=== PATIENT | male | born 1930 | race Caucasian/White ===

== ENCOUNTER 2016-07-28 08:35 | Inpatient (IN) | payer OTHER, BC ==
--- NOTE | 2016-07-28 08:44 | PDOC ---
*Physical Exam - Physical Exam Comments: 07/28/16 08:44 Pt seen by the Advanced Practice Provider under my direct supervision Pt interviewed and examined Ancillary studies reviewed I agree with plan as outlined by the Advanced Practice Provider ED Treatment Course - LABORATORY CBC & Chemistry Diagram: 07/30/16 06:20 07/30/16 06:20 *DC/Admit/Observation/Transfer Diagnosis at time of Disposition: Cellulitis, Weakness, Steroid dependence
[2016-07-28 08:56] VITALS: BMI 28.2
[2016-07-28 09:09] LABS: MCH 30.4 pg (25.7-33.7); MCHC 32.9 g/dl (32.0-35.9); MEAN CELL VOLUME 92.4 fl (80-96); PLATELET COUNT 282 K/MM3 (134-434); RDW 15.3 % (11.9-15.9); WHITE BLOOD COUNT 21.1 K/mm3 (4.0-10.0)
--- NOTE | 2016-07-28 09:24 | PDOC ---
History of Present Illness - General Chief Complaint: Weakness Stated Complaint: SEPSIS Time Seen by Provider: 07/28/16 08:44 History Source: Patient, Other (daughter ( physician)) Exam Limitations: No Limitations - History of Present Illness Initial Comments: 07/28/16 09:14 85 y/o male sent over for evaluation of generalized weakness, generalized redness and swelling to rash involving his extremities, torso, and neck. Patient was diagnosed with approximately 6 months ago and has been on steroids and antibiotics. Patient now with draining vesicles to extremities and frequently visits the skilled nursing where his is currently for rehabilitation. patient denies fever, chills, chest pain, shortness of breath, nausea, or decreased urine output. 07/28/16 09:44 Past History - Past Medical History Allergies/Adverse Reactions: Allergies Allergy/AdvReac Type Severity Reaction Status Date / Time alprazolam [From Xanax] Allergy Verified 07/28/16 08:56 codeine Allergy Verified 07/28/16 08:56 Cancer: Yes (prostate) Cardiac Disorders: Yes (afib) HTN: Yes Hypercholesterolemia: Yes Other medical history: pemphigus - Surgical History Appendectomy: Yes GI Surgery: Yes (inguinal hernia repair) - Psycho/Social/Smoking Cessation Hx Anxiety: No Suicidal Ideation: No Smoking History: Never smoked Have you smoked in the past 12 months: No Information on smoking cessation initiated: No Hx Alcohol Use: No Drug/Substance Use Hx: No Substance Use Type: None Patient Lives Alone: No Lives with/in: spouse/SO Review of Systems - Review of Systems Able to Perform ROS?: Yes Constitutional: Yes: Weakness HEENTM: No: Symptoms Reported Respiratory: No: Symptoms reported Cardiac (ROS): No: Symptoms Reported ABD/GI: No: Symptoms Reported : No: Symptoms Reported Musculoskeletal: No: Symptoms Reported Integumentary: Yes: Erythema, Rash, Other (draining veiscles) Neurological: Yes: Weakness *Physical Exam - Vital Signs Last Vital Signs Temp Pulse Resp BP Pulse Ox 96.1 F L 66 20 135/72 100 07/28/16 08:49 07/28/16 08:49 07/28/16 08:49 07/28/16 08:49 07/28/16 08:49 - Physical Exam General Appearance: Yes: Nourished, Appropriately Dressed. No: Apparent Distress HEENT: negative: Pale Conjunctivae Respiratory/Chest: positive: Lungs Clear, Normal Breath Sounds. negative: Respiratory Distress, Accessory Muscle Use Cardiovascular: positive: Regular Rhythm, Regular Rate. negative: Murmur Gastrointestinal/Abdominal: positive: Soft Extremity: positive: Swelling (to bilateral arms with 1-2 cm vesicles scattered to body. Noted draining vesicle to dorsal aspect of right 1st toe. ), Erythema Integumentary: positive: Erythema (scateered to torso, legs, and arms), Swelling Neurologic: positive: Motor Strength 5/5 (ambulatory) Heart Score/ECG Review - ECG Intrepretation Rhythm: Regular Rhythm (nsr 64. No acute findings noted.) ED Treatment Course - LABORATORY CBC & Chemistry Diagram: 07/28/16 09:00 07/28/16 09:00 - RADIOLOGY Radiology Studies Ordered: Category Date Time Status CHEST X-RAY PORTABLE* [RAD] Stat Radiology 07/28/16 08:51 Taken Medical Decision Making - Medical Decision Making 07/28/16 09:50 Pt with concern foe sepsis. Pt recently diagnosed with pemphimgus and currently on bactrim tiw and prednisone daily. Although pt is afebrile, his complaints is generalized weakness and redness/swelling to body. Septic workup initiated and pt id to be admitted to Dr. Mckeon. Wound cx obtained from rt 1st toe. *DC/Admit/Observation/Transfer Diagnosis at time of Disposition: Weakness, Steroid dependence Cellulitis Qualifiers: Site of cellulitis: extremity Site of cellulitis of extremity: upper extremity Laterality: unspecified laterality Qualified Code(s): L03.119 - Cellulitis of unspecified part of limb - Discharge Dispostion Admit: Yes
[2016-07-28] MEDS ORDERED: methylPREDNISolone NA SUCC 125 MG/2 ML VIAL IVPB ONE (09:25)
[2016-07-28] MEDS ORDERED: VANCOMYCIN 1 GRAM (PRE-DOCKED) 1,000 MG/250 ML BAG IVPB ONE (09:31)
[2016-07-28] MEDS ORDERED: methylPREDNISolone NA SUCC 125 MG/2 ML VIAL ONE (09:33)
[2016-07-28 09:35] LABS: INR 1.08 (0.82-1.09); PROTHROMBIN TIME (PATIENT) 11.9 SEC (9.98-11.88)
[2016-07-28] MEDS ORDERED: VANCOMYCIN 1 GRAM (PRE-DOCKED) 250 ML IVPB ONE (09:48)
[2016-07-28 09:57] LABS: ALK PHOS 44 U/L (45-117); BILIRUBIN,TOTAL 0.4 mg/dL (0.2-1.0); CALCIUM 7.7 mg/dL (8.5-10.1); CREATININE 1.2 mg/dL (0.7-1.3); SGOT/AST 9 U/L (15-37); SGPT/ALT 20 U/L (12-78)
[2016-07-28 10:24] LABS: ALBUMIN 2.6 g/dl (3.4-5.0); ANION GAP 10 (8-16); CO2 24 mmol/L (21-32); GLUCOSE,RANDOM 183 mg/dL (74-106)
[2016-07-28] MEDS ORDERED: SODIUM CHLORIDE 1,000 ML IV STA (10:24)
[2016-07-28 10:25] LABS: TROPONIN I < 0.02 ng/ml (0.00-0.05)
--- NOTE | 2016-07-28 11:13 | HP ---
Admitting History and Physical - Admission Chief Complaint: weakness/ fatigued / hypotensive History of Present Illness: 85 y/o male with PMH of HTN / Prostate CA/ Bulluos Phemphigoid - currently treated with high dose steroids on and off for over 6 months. He Called daughter this am ( she is an MD) c/o weakness "cant get out of bed" and noted to have slurring of his speech. At time of event daughter reports Bp 100/60, NO neuro deficit, denies fever / chills / called EMS for transfer to ER. [place] [facility] [place] with B.Shielagoid tx with decadron, had follow up with specialist last week and started on 60 mg prednisone daily. Remains on steroids -will need to cover for adrenal suppression. Meds have beed reviewed and remains only on labetolol for HTN Known to have LBBB on EKG History Source: Patient, Family Member Limitations to Obtaining History: No Limitations - Past Medical History Additional Past Medical History: Bullous phemphigoid - Smoking History Smoking history: Never smoked Have you smoked in the past 12 months: No - Alcohol/Substance Use Hx Alcohol Use: No - Social History Usual Living Arrangement: Yes: With Spouse ADL: Independent Home Medications - Allergies Allergies/Adverse Reactions: Allergies Allergy/AdvReac Type Severity Reaction Status Date / Time alprazolam [From Xanax] Allergy Verified 07/28/16 08:56 codeine Allergy Verified 07/28/16 08:56 - Home Medications Home Medications: Ambulatory Orders Cholecalciferol (Vitamin D3) [Vitamin D3] 50,000 unit PO WEEKLY 07/28/16 Halobetasol Prop 0.05% Tp Crm [Ultravate (Nf)] 1 applic TP DAILY 07/28/16 Labetalol HCl [Normodyne -] 100 mg PO BID 07/28/16 Prednisone [Deltasone -] 2 mg PO DAILY 07/28/16 Prednisone [Deltasone -] 60 mg PO DAILY 07/28/16 Review of Systems - Review of Systems Constitutional: reports: Weakness Eyes: reports: No Symptoms HENT: reports: No Symptoms Neck: reports: No Symptoms Cardiovascular: reports: No Symptoms Respiratory: reports: No Symptoms Gastrointestinal: reports: No Symptoms Genitourinary: reports: No Symptoms Breasts: reports: No Symptoms Reported Musculoskeletal: reports: No Symptoms Integumentary: reports: Blister, Change in Color, Lesions, Pruritis, Other ( blister) Neurological: reports: Weakness Physical Examination Vital Signs: Vital Signs Temperature 96.1 F L 07/28/16 08:59 Pulse Rate 66 07/28/16 08:59 Respiratory Rate 20 07/28/16 08:59 Blood Pressure 135/72 07/28/16 08:59 O2 Sat by Pulse Oximetry (%) 100 07/28/16 08:59 Constitutional: Yes: Calm Eyes: Yes: Conjunctiva Clear, EOM Intact HENT: Yes: Atraumatic, Normocephalic Neck: Yes: Supple, Trachea Midline Cardiovascular: Yes: WNL Respiratory: Yes: CTA Bilaterally Gastrointestinal: Yes: Normal Bowel Sounds Renal/: Yes: WNL Breast(s): Yes: WNL Musculoskeletal: Yes: WNL Extremities: Yes: Erythema, Other (multiple lesions / bear skin / bullous lesions) Edema: No Peripheral Pulses: Left Radial: 2+, Right Radial: 2+, Left Doralis Pedis: 2+, Right Dorsalis Pedis: 2+, Left Femoral: 2+, Right Femoral: 2+ Integumentary: Yes: Erythema, Other Neurological: Yes: Alert, Oriented ...Motor Strength: WNL Psychiatric: Yes: WNL Problem List - Problems (1) Sepsis affecting skin Code(s): L02.91 - CUTANEOUS ABSCESS, UNSPECIFIED (2) Bullous disorder Code(s): L13.9 - BULLOUS DISORDER, UNSPECIFIED (3) Adrenal suppression Code(s): E27.49 - OTHER ADRENOCORTICAL INSUFFICIENCY (4) Cellulitis Code(s): L03.90 - CELLULITIS, UNSPECIFIED Qualifiers: Site of cellulitis: extremity Site of cellulitis of extremity: upper extremity Laterality: unspecified laterality Qualified Code(s): L03.119 - Cellulitis of unspecified part of limb (5) Weakness Code(s): R53.1 - WEAKNESS (6) HTN (hypertension) Code(s): I10 - ESSENTIAL (PRIMARY) HYPERTENSION
--- NOTE | 2016-07-28 13:20 | PN ---
Progress Note, Physician Chief Complaint: ID Appears stable Offers no complaints - Current Medication List Current Medications: Active Medications Heparin Sodium (Porcine) (Heparin -) 5,000 unit SQ BID ADILENE - Objective Vital Signs: Vital Signs Temperature 97.9 F 07/28/16 11:59 Pulse Rate 63 07/28/16 11:59 Respiratory Rate 18 07/28/16 11:59 Blood Pressure 164/76 07/28/16 11:59 O2 Sat by Pulse Oximetry (%) 98 07/28/16 12:06 Constitutional: Yes: Well Nourished, No Distress Neck: Yes: WNL, Supple Cardiovascular: Yes: Regular Rate and Rhythm, S1, S2 Respiratory: Yes: WNL, Regular, CTA Bilaterally Gastrointestinal: Yes: WNL, Normal Bowel Sounds, Soft. No: Tenderness Edema: No Integumentary: Yes: Rash Labs: INR, PTT INR 1.08 (0.82-1.09) 07/28/16 09:00 Problem List - Problems (1) Sepsis affecting skin Code(s): L02.91 - CUTANEOUS ABSCESS, UNSPECIFIED (2) Bullous pemphigoid Code(s): L12.0 - BULLOUS PEMPHIGOID Assessment/Plan Laboratory Tests 07/28/16 07/28/16 07/28/16 09:00 09:00 09:00 WBC 21.1 H Hgb 12.2 Plt Count 282 Creat Clearance w eGFR 57.41 Lactic Acid 2.454 H* Total Bilirubin 0.4 AST 9 L ALT 20 Alkaline Phosphatase 44 L Urine Urobilinogen 07/28/16 07/28/16 10:00 11:25 WBC Hgb Plt Count Creat Clearance w eGFR Lactic Acid 2.179 H* Total Bilirubin AST ALT Alkaline Phosphatase Urine Urobilinogen Pending Assessment Bullous Phemphigoid I do not think he has sepsis Only thing going for that is elevated lactic acid Vital signs and O2 status fine. WBC elevation most likely s60mg prednisone Plan In the interest of patient safety will cover with Vancomycin and Zosyn for 24-48hours. If cultures negative will stop constantine Leigh MD
[2016-07-28] MEDS ORDERED: VANCOMYCIN 1,500 MG in DEXTROSE 5%-WATER - 500 ML IVPB ONE (13:30)
[2016-07-28 13:38] LABS: URINE APPEARANCE CLEAR; URINE BILIRUBIN NEGATIVE (NEGATIVE); URINE BLOOD NEGATIVE (NEGATIVE); URINE COLOR YELLOW; URINE GLUCOSE (UA) NEGATIVE (NEGATIVE); URINE KETONE NEGATIVE (NEGATIVE); URINE LEUK ESTERASE NEGATIVE (NEGATIVE); URINE NITRITE NEGATIVE (NEGATIVE); URINE PROTEIN NEGATIVE (NEGATIVE); URINE UROBILINOGEN NEGATIVE E.U./dl (0.2-1.0)
[2016-07-28] MEDS ORDERED: VANCOMYCIN (PRE-DOCKED) 100 ML IVPB ONE (14:00)
--- NOTE | 2016-07-28 14:06 | PN ---
Teaching Attending Note Name of Resident: Cristino Dubon ATTENDING PHYSICIAN STATEMENT I saw and evaluated the patient. I reviewed the resident's note and discussed the case with the resident. I agree with the resident's findings and plan as documented. SUBJECTIVE: Pt seen and examined in the ICU. Briefly, 85yo male with h/o HTN, prostate ca, bullous pemphigoid on chronic steroids who presents with generalized weakness and slurred speech. He has been on prednisone on and off for the past 6 months but has been on daily dose for the past 2-3 weeks. Denies fevers, chills or sweats. He does report an increase in his rash and increased itchiness. Noted to have an elevated lactate and leukocytosis on admission labs. OBJECTIVE: Last Vital Signs Temp Pulse Resp BP Pulse Ox 97.9 F 63 18 164/76 98 07/28/16 11:59 07/28/16 11:59 07/28/16 11:59 07/28/16 11:59 07/28/16 12:06 Intake & Output 07/25/16 07/26/16 07/27/16 07/28/16 23:59 23:59 23:59 23:59 Output Total 400 Balance -400 Weight 175 lb Gen: NAD at rest Heart: RRR Lung: decreased breath sounds at the bases Abd: soft, nontender Ext: no edema Skin: innumerable blisters, some open with erythema CBC, BMP 07/28/16 09:00 07/28/16 09:00 Active Medications Heparin Sodium (Porcine) (Heparin -) 5,000 unit SQ BID [facility] Piperacillin Sod/Tazobactam Sod (Zosyn 4.5gm Ivpb (Pre-Docked)) 100 mls @ 200 mls/hr IVPB Q8H-IV [facility] PRN Reason: Protocol Vancomycin HCl (Vancomycin (Pre-Docked)) 100 mls @ 100 mls/hr IVPB ONCE ONE Stop: 07/28/16 14:59 Trimethoprim/Sulfamethoxazole (Bactrim Ds -) 1 each PO [id number]@1000 [facility] ASSESSMENT AND PLAN: r/o Sepsis Lactic Acidosis r/o Cellulitis Bullous Pemphigoid r/o Adrenal Insufficiency HTN - antibiotic coverage - f/u cultures - IVF - monitor lactate - monitor fever curve, WBC trend - benadryl - short course of stress dose steroids - DVT prophylaxis
--- NOTE | 2016-07-28 14:38 | CONSULT ---
Consultation: REQUESTING PROVIDER: CONSULT REQUEST: We have been asked to medically evaluate this patient for ( specify). 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 came to hospital with generalized weakness. Patient states that this morning when he woke up he felt generalized weakness. His daughter checked his bp whic was 100/ 45. his usual bp is around 130. In hospital he was found to have elevated lactic acid. ID is on case and he got zosyn and vanco. Patient is on iv fluid. For BP he was on jodi inhibitor but his daughter stopped it ( she is physician ) as his legs started getting swollen. Now patient feels better, genralized weakness has decreased. REVIEW OF SYSTEMS: CONSTITUTIONAL: Absent: fever, chills, diaphoresis, generalized weakness,weight change HEENT: Absent: throat pain, throat swelling, difficulty swallowing, mouth swelling, CARDIOVASCULAR: Absent: chest pain, syncope, palpitations, irregular heart rate, lightheadedness , peripheral edema RESPIRATORY: Absent: cough, shortness of breath, GASTROINTESTINAL: Absent: abdominal pain, abdominal distension, nausea, vomiting, diarrher, hematochezia GENITOURINARY: Absent: dysuria, frequency, urgency, MUSCULOSKELETAL: Absent: myalgia, arthralgia, SKIN: multiple blisters all over body, rashes all over, itching ENDOCRINE: Absent: unexplained weight gain, unexplained weight loss, NEUROLOGIC: Absent: headache, focal weakness or paresthesias, dizziness, unsteady gait, seizure, mental status changes, bladder or bowel incontinence PSYCHIATRIC: Absent: anxiety, depression, PHYSICAL EXAMINATION Vital Signs - 24 hr 07/28/16 07/28/16 07/28/16 11:19 11:20 11:59 Temperature 97.2 F L 97.9 F Pulse Rate 65 63 Pulse Rate [ 68 Apical] Respiratory 18 20 18 Rate Blood Pressure 154/77 164/76 Blood Pressure 154/77 [Right Arm] O2 Sat by Pulse 97 100 Oximetry (%) 07/28/16 12:06 Temperature Pulse Rate Pulse Rate [ Apical] Respiratory Rate Blood Pressure Blood Pressure [Right Arm] O2 Sat by Pulse 98 Oximetry (%) GENERAL: Awake, alert, and fully oriented, in no acute distress. HEAD: Normal with no signs of trauma. EYES: Pupils equal, round and reactive to light, extraocular movements intact. EARS, NOSE, THROAT: Ears normal, nares patent, oropharynx clear without exudates. Moist mucous membranes. no ulcer seen in oral cavity NECK: Normal range of motion, . LUNGS no wheezes, and no crackles. No accessory muscle use. HEART: s1s2 normal ABDOMEN: Soft, nontender, not distended, normoactive bowel sounds, no guarding, no rebound, no masses. MUSCULOSKELETAL: Normal range of motion at all joints. UPPER EXTREMITIES: 2+ pulses, warm, well-perfused. No cyanosis. No clubbing. Cap refill <2 seconds. No peripheral edema. LOWER EXTREMITIES: 2+ pulses, warm, well-perfused. No calf tenderness. No peripheral edema. NEUROLOGICAL: Cranial nerves II-XII intact. Normal speech PSYCHIATRIC: Cooperative. Good eye contact. SKIN: Warm, mutilple blisters and rashes all over body Laboratory Results - last 24 hr 07/28/16 07/28/16 10:00 11:25 Lactic Acid 2.179 H* Urine Color Yellow Urine Appearance Clear Urine pH 5.0 Ur Specific [place] 1.019 Urine Protein Negative Urine Glucose (UA) Negative Urine Ketones Negative Urine Blood Negative Urine Nitrite Negative Urine Bilirubin Negative Urine Urobilinogen Negative Ur Leukocyte Esterase Negative Active Medications Generic Name Dose Route Start Last Admin Trade Name Chuyq PRN Reason Stop Dose Admin Diphenhydramine HCl 50 mg 07/28/16 14:30 Benadryl Injection - IVPB 07/28/16 14:31 ONCE ONE Heparin Sodium (Porcine) 5,000 unit 07/28/16 22:00 Heparin - SQ BID ADILENE Hydrocortisone Sodium Succinate 100 mg 07/28/16 14:15 Solu-Cortef - IVPB 07/30/16 02:01 Q8H-IV [facility] Piperacillin Sod/Tazobactam Sod 100 mls @ 200 mls/hr 07/28/16 13:45 Zosyn 4.5gm Ivpb (Pre-Docked) IVPB Q8H-IV [facility] Protocol Vancomycin HCl 100 mls @ 100 mls/hr 07/28/16 14:00 Vancomycin (Pre-Docked) IVPB 07/28/16 14:59 ONCE ONE Sodium Chloride 1,000 mls @ 75 mls/hr 07/28/16 14:30 Normal Saline - IV ASDIR ADILENE Trimethoprim/Sulfamethoxazole 1 each 04/07/17 10:00 Bactrim Ds - PO [id number]@1000 [facility] ASSESSMENT/PLAN: sepsis , r/o cellulitis, wbc can be elevated from steroid ( he was on 60mg of prednisone) on vanco, zosyn follow lactic acid on iv fluid monitor vitals, monitor i/o follow blood and urine culture Bullous pemphigoid on IV hydrocortisone 100mg iv q8h HTN home med labetalol Fluid IV ns 75ml/hr electrolyte : repeat in am nutrition: diabetic diet dvt pro on heparin gi pro protonix dispo : admit in icu Visit type - Emergency Visit Emergency Visit: Yes ED Registration Date: 07/28/16 Care time: The patient presented to the Emergency Department on the above date and was hospitalized for further evaluation of their emergent condition. - New Patient This patient is new to me today: Yes Date on this admission: 07/28/16 - Critical Care Critical Care patient: Yes Total Critical Care Time (in minutes): 45 Critical Care Statement: The care of this patient involved high complexity decision making to prevent further life threatening deterioration of the patient 's condition and/or to evalute & treat vital organ system(s) failure or risk of failure.
[2016-07-28] MEDS: PIPERACILLIN/TAZOB 4.5 GM 100 ML IVPB SCH ×2 (14:44→18:03)
[2016-07-28] MEDS: SODIUM CHLORIDE 1,000 ML IV SCH (14:45)
[2016-07-28] MEDS: HYDROCORTISONE SOD SUCCINATE 100 MG/2 ML VIAL IVPB SCH ×2 (14:45→17:20)
--- NOTE | 2016-07-28 16:08 | EKG ---
Test Reason : Blood Pressure : / mmHG Vent. Rate : 060 BPM Atrial Rate : 060 BPM P-R Int : 202 ms QRS Dur : 112 ms QT Int : 414 ms P-R-T Axes : 062 -28 011 degrees QTc Int : 414 ms NORMAL SINUS RHYTHM POSSIBLE LEFT ATRIAL ENLARGEMENT INCOMPLETE RIGHT BUNDLE BRANCH BLOCK BORDERLINE ECG NO PREVIOUS ECGS AVAILABLE Confirmed by SANJAY SANDOVAL MD ([id number]) on 07/28/2016 4:07:53 PM Referred By: Confirmed By:SANJAY SANDOVAL MD
--- NOTE | 2016-07-28 17:10 | CONS ---
DATE OF CONSULTATION: 07/28/2016 HISTORY OF PRESENT ILLNESS: This is an 85-year-old male with known bullous pemphigoid on high dose steroids who I am asked to see for possible sepsis. The patient has been followed by Dr. Jacobsen his primary medical doctor in [place]. His daughter, an waitstaff who works locally, apparently had called EMS as the patient had been, according to the notes, slurring his speech and felt profoundly weak almost paralyzed. His blood pressure was found to be 100/60 initially. There was no fever, chills or other systemic complaints. The patient has been on 60 mg of prednisone for some time after an effort to taper was unsuccessful and his pemphigoid flared up again recently. He has been on Bactrim 3 times a week for infection prophylaxis. Here, his vital signs were immediately stable. The temperature was 96.1, pulse 66, blood pressure 135/72, respirations 20, O2 saturation 100%. He denies any shortness of breath, chest pain, abdominal pain, urinary complaints. He has extensive rash with blisters consistent with his diagnosis of bullous pemphigoid, but no obvious abscesses that he is aware of. PAST MEDICAL HISTORY: Prostate cancer and hypertension. MEDICATIONS: Normodyne, 60 mg of prednisone. ALLERGIES: XANAX AND CODEINE. SOCIAL HISTORY: Former smoker. Gave this up many years ago. No history of alcohol use. Lives locally. Retired federal worker. No pets. No recent travel. FAMILY HISTORY: Reviewed and noncontributory. REVIEW OF SYSTEMS: Respiratory: No cough or shortness of breath. Cardiac: No chest pain, palpitations, syncope, murmur. Gastrointestinal: No abdominal pain, vomiting, blood per rectum, diarrhea, Genitourinary: No dysuria, hematuria, urinary frequency. PHYSICAL EXAMINATION: General: On physical examination, he was an alert male in no acute distress, oriented x3. Vitals: His temperature was 97.9, pulse 63, blood pressure 1640/76, respirations 18. HEENT: The oropharynx with partial dentures, no thrush, no oral ulcers. Neck: Supple with no adenopathy. Lungs: Clear to percussion and auscultation. Heart: S1, S2, regular rhythm without audible murmur. Abdomen: Soft, nontender without hepatosplenomegaly. Extremities: Without clubbing, cyanosis or edema. Skin: The skin revealed extensive erythematous maculopapular rash with discrete areas of skin ulceration, as well as multiple large blisters present diffusely. There was no evidence of obvious cellulitis, though difficult to tell and no fluctuant or purulent areas. The white count was 21,000, hemoglobin 12.2, platelets of 282 with a differential of 63% neutrophils, 5 lymphocytes, 7 monocytes and 25% eosinophils. The INR 1.08, BUN 42, creatinine 1.2, creatinine clearance 57, lactic acid 2.4. Liver enzymes within normal limit and urinalysis pending. Blood and urine cultures have been sent. Chest x-ray shows no acute infiltrate. ASSESSMENT: Bullous pemphigoid, has been on 60 mg of prednisone, presents now with profound weakness and hypotension, although this had corrected itself by the time he was brought to the hospital. He is taking Bctrim prophylaxis at home. He has no systemic findings suggesting active infection at this time and his chest x-ray shows no evidence of pneumonia. Given his immunocompromised status hypotension and open skin wounds, I will empirically treat him with vancomycin and Zosyn, although index for suspicion for infection admittedly low. Essentially only a mildly elevated lactic acid and a white count elevated probably related to corticosteroids. Of note is a prominent eosinophil count 24 % considering that he is on high dose steroids. Etiology of eosinophilia unclear at this time. The case was discussed with his primary medical doctor, Dr. Jacobsen in [place]. LAW SHEWROOD M.D. [id number] MTDMaria [place]
[2016-07-28] MEDS: HEPARIN NA (PORCINE) 5,000 UNITS/ML 1ML VIAL SQ SCH (21:56)
[2016-07-28] MEDS: LABETALOL HCL 100 MG TABLET (FP) PO SCH (21:56)
[2016-07-29] MEDS: PIPERACILLIN/TAZOB 4.5 GM 100 ML IVPB SCH ×3 (01:23→20:16)
[2016-07-29] MEDS: HYDROCORTISONE SOD SUCCINATE 100 MG/2 ML VIAL IVPB SCH ×3 (01:23→18:03)
[2016-07-29 06:41] LABS: BASOPHIL 0.2 % (0-2.0); MCH 30.6 pg (25.7-33.7); MCHC 33.1 g/dl (32.0-35.9); MEAN CELL VOLUME 92.4 fl (80-96); MEAN PLT VOLUME 8.5 fl (7.5-11.1); NEUTROPHILS 78.9 % (42.8-82.8); PLATELET COUNT 298 K/MM3 (134-434); RDW 15.5 % (11.9-15.9); WHITE BLOOD COUNT 17.9 K/mm3 (4.0-10.0)
[2016-07-29 07:17] LABS: CALCIUM 7.6 mg/dL (8.5-10.1)
[2016-07-29 07:21] LABS: COCKROFT - GAULT 63.46
--- NOTE | 2016-07-29 07:49 | PN ---
Progress Note, Physician Chief Complaint: ID IN good spirits Good night rest Really no complaints Vancom and Zosyn day 1 - Current Medication List Current Medications: Active Medications Heparin Sodium (Porcine) (Heparin -) 5,000 unit SQ BID [facility] Last Admin: 07/28/16 21:56 Dose: 5,000 unit Hydrocortisone Sodium Succinate (Solu-Cortef -) 100 mg IVPB Q8H-IV [facility] Stop: 07/30/16 02:01 Last Admin: 07/29/16 01:23 Dose: 100 mg Piperacillin Sod/Tazobactam Sod (Zosyn 4.5gm Ivpb (Pre-Docked)) 100 mls @ 200 mls/hr IVPB Q8H-IV [facility] PRN Reason: Protocol Last Admin: 07/29/16 01:23 Dose: 200 mls/hr Sodium Chloride (Normal Saline -) 1,000 mls @ 75 mls/hr IV [facility] Last Admin: 07/28/16 14:45 Dose: 75 mls/hr Labetalol HCl (Normodyne -) 100 mg PO BID [facility] Last Admin: 07/28/16 21:56 Dose: 100 mg Pantoprazole Sodium (Protonix -) 40 mg PO DAILY [facility] Trimethoprim/Sulfamethoxazole (Bactrim Ds -) 1 each PO [id number]@1000 [facility] - Objective Vital Signs: Vital Signs Temperature 98.5 F 07/29/16 06:00 Pulse Rate 62 07/29/16 06:00 Respiratory Rate 16 07/29/16 06:00 Blood Pressure 157/88 07/29/16 06:00 O2 Sat by Pulse Oximetry (%) 98 07/28/16 19:23 Constitutional: Yes: Well Nourished, No Distress Neck: Yes: WNL, Supple Cardiovascular: Yes: Regular Rate and Rhythm, S1, S2 Respiratory: Yes: WNL, Regular, CTA Bilaterally Gastrointestinal: Yes: WNL, Normal Bowel Sounds, Soft. No: Tenderness Integumentary: Yes: Rash (Diffuse rash blisters ulcers and erythema diffusely) Labs: CBC, BMP 07/29/16 05:30 07/29/16 05:30 INR, PTT INR 1.08 (0.82-1.09) 07/28/16 09:00 Problem List - Problems (1) Sepsis affecting skin Code(s): L02.91 - CUTANEOUS ABSCESS, UNSPECIFIED (2) Bullous pemphigoid Code(s): L12.0 - BULLOUS PEMPHIGOID Assessment/Plan Laboratory Tests 07/28/16 07/28/16 07/28/16 09:00 11:25 17:00 WBC Hgb Hct Plt Count BUN Creatinine Lactic Acid 2.454 H* 2.179 H* 3.205 H* 07/29/16 07/29/16 05:30 05:30 WBC 17.9 H Hgb 11.2 L Hct 33.9 L Plt Count 298 BUN 33 H D Creatinine 1.0 Lactic Acid Assessment Bullous pemphigoid Clinically stable Elevated lactic acid noted unclear at this time why Eosinophilia on steroids ? due to autoimmune disease Plan Vanco level Continue Zosyn Eosinophil count now down Await cultures Reese SHEETS
[2016-07-29] MEDS ORDERED: PANTOPRAZOLE 40 MG TABLET (FP) PO SCH (10:00)
[2016-07-29] MEDS ORDERED: SULFAMETHOXAZOLE/TRIMETHOPRIM 800MG/160MG D.S. TABLET PO SCH (10:00)
[2016-07-29] MEDS: HEPARIN NA (PORCINE) 5,000 UNITS/ML 1ML VIAL SQ SCH ×2 (10:08→21:25)
[2016-07-29] MEDS: LABETALOL HCL 100 MG TABLET (FP) PO SCH ×2 (10:08→21:22)
--- NOTE | 2016-07-29 12:04 | PN ---
Teaching Attending Note Name of Resident: Cristino Dubon ATTENDING PHYSICIAN STATEMENT I saw and evaluated the patient. I reviewed the resident's note and discussed the case with the resident. I agree with the resident's findings and plan as documented. SUBJECTIVE: Pt seen and examined in the ICU. Awake and alert. Lactic acid is improved. Skin lesions seem stable. No CP or SOB. Intake & Output 07/26/16 07/27/16 07/28/16 07/29/16 23:59 23:59 23:59 23:59 Intake Total 1250 1000 Output Total 1500 400 Balance -250 600 Weight 175 lb 186 lb 9 oz Last Vital Signs Temp Pulse Resp BP Pulse Ox 98.1 F 67 19 158/67 99 07/29/16 10:00 07/29/16 10:00 07/29/16 10:00 07/29/16 10:00 07/29/16 08:00 Active Medications Heparin Sodium (Porcine) (Heparin -) 5,000 unit SQ BID [facility] Last Admin: 07/29/16 10:08 Dose: 5,000 unit Hydrocortisone Sodium Succinate (Solu-Cortef -) 100 mg IVPB Q8H-IV [facility] Stop: 07/30/16 02:01 Last Admin: 07/29/16 10:08 Dose: 100 mg Piperacillin Sod/Tazobactam Sod (Zosyn 4.5gm Ivpb (Pre-Docked)) 100 mls @ 200 mls/hr IVPB Q8H-IV [facility] PRN Reason: Protocol Last Admin: 07/29/16 10:07 Dose: 200 mls/hr Sodium Chloride (Normal Saline -) 1,000 mls @ 75 mls/hr IV ASDIR [facility] Last Admin: 07/28/16 14:45 Dose: 75 mls/hr Labetalol HCl (Normodyne -) 100 mg PO BID [facility] Last Admin: 07/29/16 10:08 Dose: 100 mg Pantoprazole Sodium (Protonix -) 40 mg PO DAILY [facility] Last Admin: 07/29/16 10:08 Dose: 40 mg Trimethoprim/Sulfamethoxazole (Bactrim Ds -) 1 each PO MoWeFr@1000 [facility] Last Admin: 07/29/16 10:08 Dose: 1 each Gen: NAD at rest Heart: RRR Lung: decreased breath sounds at the bases Abd: soft, nontender Ext: no edema Skin: innumerable blisters, some open with erythema Laboratory Results - last 24 hr 07/28/16 07/28/16 07/28/16 09:00 10:00 11:25 WBC RBC Hgb Hct MCV MCHC RDW Plt Count MPV Neutrophils % 63.0 Lymphocytes % 5.0 L Monocytes % 7.0 Eosinophils % 25.0 H* Basophils % Differential Comment Manual diff done Sodium Potassium Chloride Carbon Dioxide Anion Gap BUN Creatinine Random Glucose Lactic Acid 2.179 H* Calcium C-Reactive Protein Urine Color Yellow Urine Appearance Clear Urine pH 5.0 Ur Specific Cressey 1.019 Urine Protein Negative Urine Glucose (UA) Negative Urine Ketones Negative Urine Blood Negative Urine Nitrite Negative Urine Bilirubin Negative Urine Urobilinogen Negative Ur Leukocyte Esterase Negative Random Vancomycin 07/28/16 07/29/16 07/29/16 17:00 05:30 05:30 WBC 17.9 H RBC 3.66 L Hgb 11.2 L Hct 33.9 L MCV 92.4 MCHC 33.1 RDW 15.5 Plt Count 298 MPV 8.5 Neutrophils % 78.9 D Lymphocytes % 7.0 L D Monocytes % 9.9 Eosinophils % 4.0 D Basophils % 0.2 Differential Comment Sodium 144 Potassium 3.9 Chloride 110 H Carbon Dioxide 23 Anion Gap 11 BUN 33 H D Creatinine 1.0 Random Glucose 140 H D Lactic Acid 3.205 H* Calcium 7.6 L C-Reactive Protein Urine Color Urine Appearance Urine pH Ur Specific Cressey Urine Protein Urine Glucose (UA) Urine Ketones Urine Blood Urine Nitrite Urine Bilirubin Urine Urobilinogen Ur Leukocyte Esterase Random Vancomycin 07/29/16 07/29/16 07/29/16 08:05 08:15 08:15 WBC RBC Hgb Hct MCV MCHC RDW Plt Count MPV Neutrophils % Lymphocytes % Monocytes % Eosinophils % Basophils % Differential Comment Sodium Potassium Chloride Carbon Dioxide Anion Gap BUN Creatinine Random Glucose Lactic Acid 1.958 Calcium C-Reactive Protein 1.1 H Urine Color Urine Appearance Urine pH Ur Specific Cressey Urine Protein Urine Glucose (UA) Urine Ketones Urine Blood Urine Nitrite Urine Bilirubin Urine Urobilinogen Ur Leukocyte Esterase Random Vancomycin 3.106 ASSESSMENT AND PLAN: r/o Sepsis Lactic Acidosis r/o Cellulitis Bullous Pemphigoid r/o Adrenal Insufficiency HTN - ABX per ID - f/u final cultures - IVF - monitor fever curve, WBC trend - benadryl as needed - short course of stress dose steroids - DVT prophylaxis - Floor Dr Davis CCTime 35"
[2016-07-29] MEDS: SODIUM CHLORIDE 1,000 ML IV SCH (14:30)
--- NOTE | 2016-07-29 15:21 | PN ---
Physical Exam: SUBJECTIVE: Patient seen and examined, patient feels better denies weakness denies sob, cheat pain, nausea, vomiting, pain abdomen OBJECTIVE: Vital Signs Period Temp Pulse Resp BP Sys/[place]illon Pulse Ox Last 24 Hr 97.8 F-98.6 F 62-86 16-23 141-174/67-98 98-99 GENERAL: Awake, alert, and fully oriented, in no acute distress. HEAD: Normal with no signs of trauma. EYES: Pupils equal, round and reactive to light, extraocular movements intact. EARS, NOSE, THROAT: Ears normal, nares patent, oropharynx clear without exudates. Moist mucous membranes. no ulcer oral cavity NECK: Normal range of motion, . LUNGS no wheezes, and no crackles. No accessory muscle use. HEART: s1s2 normal ABDOMEN: Soft, nontender, not distended, normoactive bowel sounds, no guarding, no rebound, no masses. MUSCULOSKELETAL: Normal range of motion at all joints. UPPER EXTREMITIES: 2+ pulses, warm, well-perfused. No cyanosis. No clubbing. Cap refill <2 seconds. No peripheral edema. LOWER EXTREMITIES: 2+ pulses, warm, well-perfused. No calf tenderness. No peripheral edema. NEUROLOGICAL: Cranial nerves II-XII intact. Normal speech PSYCHIATRIC: Cooperative. Good eye contact. SKIN: Warm, mutilple blisters and rashes all over body Laboratory Results - last 24 hr 07/28/16 07/29/16 07/29/16 17:00 05:30 05:30 WBC 17.9 H RBC 3.66 L Hgb 11.2 L Hct 33.9 L MCV 92.4 MCHC 33.1 RDW 15.5 Plt Count 298 MPV 8.5 Neutrophils % 78.9 D Lymphocytes % 7.0 L D Monocytes % 9.9 Eosinophils % 4.0 D Basophils % 0.2 Sodium 144 Potassium 3.9 Chloride 110 H Carbon Dioxide 23 Anion Gap 11 BUN 33 H D Creatinine 1.0 Random Glucose 140 H D Lactic Acid 3.205 H* Calcium 7.6 L C-Reactive Protein Random Vancomycin 07/29/16 07/29/16 07/29/16 08:05 08:15 08:15 WBC RBC Hgb Hct MCV MCHC RDW Plt Count MPV Neutrophils % Lymphocytes % Monocytes % Eosinophils % Basophils % Sodium Potassium Chloride Carbon Dioxide Anion Gap BUN Creatinine Random Glucose Lactic Acid 1.958 Calcium C-Reactive Protein 1.1 H Random Vancomycin 3.106 Active Medications Generic Name Dose Route Start Last Admin Trade Name Freq PRN Reason Stop Dose Admin Heparin Sodium (Porcine) 5,000 unit 07/28/16 22:00 07/29/16 10:08 Heparin - SQ 5,000 unit BID [facility] Administration Hydrocortisone Sodium Succinate 100 mg 07/28/16 14:15 07/29/16 10:08 Solu-Cortef - IVPB 07/30/16 02:01 100 mg Q8H-IV [facility] Administration Piperacillin Sod/Tazobactam Sod 100 mls @ 200 mls/hr 07/28/16 13:45 07/29/16 10 :07 Zosyn 4.5gm Ivpb (Pre-Docked) IVPB 200 mls/hr Q8H-IV [facility] Administration Protocol Sodium Chloride 1,000 mls @ 75 mls/hr 07/28/16 14:30 07/28/16 14:45 Normal Saline - IV 75 mls/hr ASDIR [facility] Administration Labetalol HCl 100 mg 07/28/16 22:00 07/29/16 10:08 Normodyne - PO 100 mg BID [facility] Administration Pantoprazole Sodium 40 mg 07/29/16 10:00 07/29/16 10:08 Protonix - PO 40 mg DAILY [facility] Administration Trimethoprim/Sulfamethoxazole 1 each 07/29/16 10:00 07/29/16 10:08 Bactrim Ds - PO 1 each MoWeFr@1000 [facility] Administration ASSESSMENT/PLAN: sepsis , r/o cellulitis, wbc can be elevated from steroid ( he was on 60mg of prednisone) antibiotics as per id rajni rouse lactic acid decreased to normal on iv fluid monitor vitals, monitor i/o follow blood and urine culture Bullous pemphigoid on IV hydrocortisone 100mg iv q8h HTN home med labetalol Fluid IV ns 75ml/hr electrolyte : repeat in am nutrition: diabetic diet dvt pro on heparin gi pro protonix dispo : admit in icu Visit type - Emergency Visit Emergency Visit: Yes ED Registration Date: 07/28/16 Care time: The patient presented to the Emergency Department on the above date and was hospitalized for further evaluation of their emergent condition. - New Patient This patient is new to me today: No - Critical Care Critical Care patient: Yes Total Critical Care Time (in minutes): 45 Critical Care Statement: The care of this patient involved high complexity decision making to prevent further life threatening deterioration of the patient 's condition and/or to evalute & treat vital organ system(s) failure or risk of failure.
[2016-07-29] MEDS ORDERED: diphenhydrAMINE HCL 25 MG CAPSULE (FP) PO PRN (20:40)
--- NOTE | 2016-07-29 22:32 | PN ---
Progress Note, Physician - Current Medication List Current Medications: Active Medications Diphenhydramine HCl (Benadryl -) 25 mg PO Q8H PRN Last Admin: 07/29/16 21:21 Dose: 25 mg Heparin Sodium (Porcine) (Heparin -) 5,000 unit SQ BID [facility] Last Admin: 07/29/16 21:25 Dose: 5,000 unit Hydrocortisone Sodium Succinate (Solu-Cortef -) 100 mg IVPB Q8H-IV [facility] Stop: 07/30/16 02:01 Last Admin: 07/29/16 18:03 Dose: 100 mg Piperacillin Sod/Tazobactam Sod (Zosyn 4.5gm Ivpb (Pre-Docked)) 100 mls @ 200 mls/hr IVPB Q8H-IV [facility] PRN Reason: Protocol Last Admin: 07/29/16 20:16 Dose: 200 mls/hr Labetalol HCl (Normodyne -) 100 mg PO BID [facility] Last Admin: 07/29/16 21:22 Dose: 100 mg Pantoprazole Sodium (Protonix -) 40 mg PO DAILY [facility] Trimethoprim/Sulfamethoxazole (Bactrim Ds -) 1 each PO MoWeFr@1000 [facility] - Objective Vital Signs: Vital Signs Temperature 97.8 F 07/29/16 17:33 Pulse Rate 62 07/29/16 17:33 Respiratory Rate 20 07/29/16 17:33 Blood Pressure 151/73 07/29/16 17:33 O2 Sat by Pulse Oximetry (%) 99 07/29/16 08:00 Labs: CBC, BMP 07/29/16 05:30 07/29/16 05:30 INR, PTT INR 1.08 (0.82-1.09) 07/28/16 09:00
[2016-07-30] MEDS: PIPERACILLIN/TAZOB 4.5 GM 100 ML IVPB SCH (01:45)
[2016-07-30] MEDS: HYDROCORTISONE SOD SUCCINATE 100 MG/2 ML VIAL IVPB SCH (02:28)
[2016-07-30 07:00] VITALS: TEMP 98.3
--- NOTE | 2016-07-30 08:38 | PN ---
Progress Note, Physician Chief Complaint: ID Asymptomatic - Current Medication List Current Medications: Active Medications Diphenhydramine HCl (Benadryl -) 25 mg PO Q8H PRN Last Admin: 07/29/16 21:21 Dose: 25 mg Heparin Sodium (Porcine) (Heparin -) 5,000 unit SQ BID [facility] Last Admin: 07/29/16 21:25 Dose: 5,000 unit Piperacillin Sod/Tazobactam Sod (Zosyn 4.5gm Ivpb (Pre-Docked)) 100 mls @ 200 mls/hr IVPB Q8H-IV [facility] PRN Reason: Protocol Last Admin: 07/30/16 01:45 Dose: 200 mls/hr Labetalol HCl (Normodyne -) 100 mg PO BID [facility] Last Admin: 07/29/16 21:22 Dose: 100 mg Pantoprazole Sodium (Protonix -) 40 mg PO DAILY [facility] Trimethoprim/Sulfamethoxazole (Bactrim Ds -) 1 each PO MoWeFr@1000 [facility] - Objective Vital Signs: Vital Signs Temperature 98.3 F 07/30/16 06:00 Pulse Rate 70 07/30/16 06:00 Respiratory Rate 20 07/30/16 06:00 Blood Pressure 148/74 07/30/16 06:00 O2 Sat by Pulse Oximetry (%) 99 07/29/16 21:00 Constitutional: Yes: Well Nourished, No Distress HENT: Yes: WNL, Atraumatic Neck: Yes: WNL, Supple Cardiovascular: Yes: Regular Rate and Rhythm, S1, S2 Respiratory: Yes: WNL, Regular, CTA Bilaterally Gastrointestinal: Yes: WNL, Normal Bowel Sounds, Soft. No: Tenderness, Tenderness, Epigastrium Integumentary: Yes: Rash Labs: INR, PTT INR 1.08 (0.82-1.09) 07/28/16 09:00 Problem List - Problems (1) Sepsis affecting skin Code(s): L02.91 - CUTANEOUS ABSCESS, UNSPECIFIED (2) Bullous pemphigoid Code(s): L12.0 - BULLOUS PEMPHIGOID Assessment/Plan Microbiology 07/28/16 10:00 Urine - Urine Clean Catch Urine Culture - Final NO GROWTH OBTAINED 07/28/16 09:20 Toe - Right Hallux Gram Stain - Final 07/28/16 09:20 Toe - Right Hallux Wound Culture - Preliminary Staphylococcus Coagulase Neg 07/28/16 09:20 Blood - Peripheral Venous Blood Culture - Preliminary NO GROWTH OBTAINED AFTER 24 HOURS, INCUBATION TO CONTINUE FOR 4 DAYS. 07/28/16 09:00 Blood - Peripheral Venous Blood Culture - Preliminary NO GROWTH OBTAINED AFTER 24 HOURS, INCUBATION TO CONTINUE FOR 4 DAYS. Assessment No documented infection Plan STOP antibiotics and discharge
[2016-07-30 08:44] LABS: CALCIUM 7.5 mg/dL (8.5-10.1); COCKROFT - GAULT 63.27
[2016-07-30 09:01] LABS: MCH 30.4 pg (25.7-33.7); MCHC 32.8 g/dl (32.0-35.9); MEAN CELL VOLUME 92.6 fl (80-96); MEAN PLT VOLUME 8.7 fl (7.5-11.1); PLATELET COUNT 287 K/MM3 (134-434); RDW 15.6 % (11.9-15.9); WHITE BLOOD COUNT 22.3 K/mm3 (4.0-10.0)
[2016-07-30] MEDS ORDERED: PANTOPRAZOLE 40 MG TABLET (FP) PO SCH (10:00)
[2016-07-30 11:22] LABS: HYPOCHROMIA 3+
[2016-07-30] MEDS: LABETALOL HCL 100 MG TABLET (FP) PO SCH (11:43)
[2016-07-30] MEDS: HEPARIN NA (PORCINE) 5,000 UNITS/ML 1ML VIAL SQ SCH (11:44)
[2016-07-30] MEDS ORDERED: predniSONE 20 MG TABLET (UD) PO SCH (12:00)
[2016-07-30 14:38] VITALS: BP 151/77; PULSE 72
[2016-08-01] MEDS ORDERED: SULFAMETHOXAZOLE/TRIMETHOPRIM 800MG/160MG D.S. TABLET PO SCH (10:00)
== END 2016-07-30 14:43 | disposition home or self-care (01) | DRG 596 ==
LOC: JER 08:35 → JERBED 09:55 → JICU 11:37 → J8W 07-29 17:30
PROVIDERS: ADMIT Family Medicine; ATTEND Family Medicine
DX: L12.0 Bullous pemphigoid (principal); E87.2 Acidosis; E27.49 Other adrenocortical insufficiency; L02.91 Cutaneous abscess, unspecified; L03.119 Cellulitis of unspecified part of limb; L10.0 Pemphigus vulgaris; I48.91 Unspecified atrial fibrillation; K40.90 Unilateral inguinal hernia, without obstruction or gangrene, not specified as recurrent; I10 Essential (primary) hypertension; Z79.52 Long term (current) use of systemic steroids; Z85.46 Personal history of malignant neoplasm of prostate
CPT/HCPCS: 36415; 71010-TC; 80048; 80053; 81003; 82550; 83605; 84484; 85025; 85610; 86140; 87040; 87070; 87086; 87205; 93005; 93010; 99285-25; G0480; J1644

== ENCOUNTER 2017-09-03 16:12 | Inpatient (IN) | payer OTHER, BC ==
--- NOTE | 2017-09-03 16:25 | PDOC ---
History of Present Illness <Keisha Hilario - Last Filed: 09/03/17 17:34> - History of Present Illness Initial Comments: Patient is an 87 year old male, with a significant past medical history of HTN, bullous pemphigoid, prostate Ca, who presents to the emergency department after family witnessed acute onset of slurred speech, L sided facial droop/drooling and gait instability starting this AM around 8AM. Pt was in his normal state of health yesterday evening, but noted some mild confusion/disorientation in the late evening, however thought nothing of it. Starting around 8AM, Pt family noted L sided facial droop with drooling and acute onset of slurred speech, in addition to inability to ambulate due to lower extremity weakness, L>R. Per family, these symptoms occurred intermittently with brief periods of return to baseline. Pt with hx of prior stroke, CA, CVD, or chronic neurologic conditions. Pt currently not on AC. Pt with good exercise tolerance, uses the eliptical for an hour a day. No recent travel or sick contacts. Does not follow with neurologist. In addition, patient endorses L leg weakness/numbness, gait instability. Patient denies palpitations, chest pain, shortness of breath, cough, headache or dizziness. Denies fever, chills, nausea, vomiting, diarrhea and constipation. Denies dysuria, frequency, urgency and hematuria. Allergies: None Past surgical history: Cataract surgery 3 years ago Social History: No smoking, alcohol or drug abuse PMD: Dr. Walden 09/03/17 16:46 <Huseyin Guidry - Last Filed: 09/04/17 15:31> - General Chief Complaint: CVA/TIA Stated Complaint: NUMBNESS/ SLURR SPEECH Time Seen by Provider: 09/03/17 16:24 Past History <Keisha Hilario - Last Filed: 09/03/17 17:34> - Past Medical History Cancer: Yes (prostate) Cardiac Disorders: Yes (afib) COPD: No HTN: Yes Hypercholesterolemia: Yes - Surgical History Appendectomy: Yes GI Surgery: Yes (inguinal hernia repair) - Suicide/Smoking/Psychosocial Hx Smoking History: Former smoker Have you smoked in the past 12 months: No Information on smoking cessation initiated: No Hx Alcohol Use: No Drug/Substance Use Hx: No Substance Use Type: None Hx Substance Use Treatment: No <Huseyin Guidry - Last Filed: 09/04/17 15:31> - Past Medical History Allergies/Adverse Reactions: Allergies Allergy/AdvReac Type Severity Reaction Status Date / Time alprazolam [From Xanax] Allergy Verified 09/03/17 16:17 codeine Allergy Verified 09/03/17 16:17 Home Medications: Ambulatory Orders Cholecalciferol (Vitamin D3) [Vitamin D3] 50,000 unit PO WEEKLY 07/28/16 Halobetasol Prop 0.05% Tp Crm [Ultravate (Nf) -] 1 applic TP DAILY 07/28/16 Labetalol HCl [Normodyne -] 200 mg PO BID 07/28/16 predniSONE [Deltasone -] 2 mg PO DAILY 07/28/16 Hydrochlorothiazide [Hctz -] 12.5 mg PO DAILY 09/03/17 Methotrexate Sodium [Methotrexate] 0 mg PO WEEKLY 09/03/17 Review of Systems - Review of Systems Comments:: GENERAL/CONSTITUTIONAL: No fever or chills. HEAD, EYES, EARS, NOSE AND THROAT: No change in vision. No ear pain or discharge. No sore throat. CARDIOVASCULAR: No chest pain or shortness of breath RESPIRATORY: No cough, wheezing, or hemoptysis. GASTROINTESTINAL: No nausea, vomiting, diarrhea or constipation. GENITOURINARY: No dysuria, frequency, or change in urination. MUSCULOSKELETAL: No joint or muscle swelling or pain. No neck or back pain. SKIN: No rash NEUROLOGIC: No headache, vertigo, loss of consciousness. +BL LE weakness, L>R, gait instability. Slurred speech, drooling. ENDOCRINE: No increased thirst. No abnormal weight change HEMATOLOGIC/LYMPHATIC: No anemia, easy bleeding, or history of blood clots. ALLERGIC/IMMUNOLOGIC: No hives or skin allergy. 09/03/17 16:55 <Huseyin Guidry - Last Filed: 09/04/17 15:31> *Physical Exam - Vital Signs Last Vital Signs Temp Pulse Resp BP Pulse Ox 98.3 F 70 19 145/104 96 09/03/17 16:17 09/03/17 16:17 09/03/17 16:17 09/03/17 16:17 09/03/17 16:17 <Keisha Hilario - Last Filed: 09/03/17 17:34> - Vital Signs Last Vital Signs Temp Pulse Resp BP Pulse Ox 98.3 F 70 19 145/104 96 09/03/17 16:17 09/03/17 16:17 09/03/17 16:17 09/03/17 16:17 09/03/17 16:17 - Physical Exam Comments: GENERAL: Elderly man, Awake, alert, and fully oriented, in no acute distress HEAD: No signs of trauma, normocephalic, atraumatic EYES: L eye with supero-lateral deviation (pt baseline). PERRLA, EOMI, sclera anicteric, conjunctiva clear ENT: Auricles normal inspection, hearing grossly normal, nares patent, oropharynx clear withoutexudates. Moist mucosa NECK: Normal ROM, supple, no lymphadenopathy, JVD, or masses LUNGS: No distress, speaks full sentences, clear to auscultation bilaterally HEART: Regular rate and rhythm, normal S1 and S2, no murmurs, rubs or gallops, peripheral pulses normal and equal bilaterally. ABDOMEN: Soft, nontender, normoactive bowel sounds. No guarding, no rebound. No masses EXTREMITIES : BL bright red maculo-papular rash on flexor/extensor surface of forearms. Normal inspection, Normal range of motion, no edema. No clubbing or cyanosis. NEUROLOGICAL: Cranial nerves II through XII appears grossly intake, with L eye supero-lateral deviation. Sensation intact BL in all dermatomes. 4/5 strength at R hip flexor, 5/5 strength in all other muscle groups in LEs. 5/5 strength in BL upper extremities across all muscle groups, 5/5 soil engineer strength. Normal speech, gait not evaluated. No pronator drift. 09/03/17 16:57 <Huseyin Guidry - Last Filed: 09/04/17 15:31> NIH Stroke Scale - Last Known Well Date/Time & Onset Date Last Known Well: 09/02/17 Time Last Known Well: 21:00 - Initial Evaluation Level of consciousness: Alert Ask patient the month and their age: Answers both correctly Ask patient to open & close eyes; make fist and let go: Obeys both correctly Best gaze (horizontal eye movement): Partial gaze palsy (L eye superolateral gaze deviation, patient baseline) Visual field testing: No visual field loss Facial paresis (Show teeth/raise eyebrows/close eyes tight): Normal symmetrical movement Motor Function: Left Arm: Normal Motor Function: Right Arm: Normal (extends arm 90 (or 45) degrees for 10 seconds without drift Motor Function: Left Leg: Normal (extends leg 30 degrees for 5 seconds without drift) Motor Function: Right Leg: Normal (extends leg 30 degrees for 5 seconds without drift) Limb Ataxia: No ataxia Sensory(Use pinprick test arms,legs,trunk,face/side to side): Normal Best language (Describe picture, name items, read sentences): No Aphasia Dysarthria (read several words): Normal articulation Extinction and Inattention: No abnormality - Total Score NIH Stroke Scale Score: 1 <Huseyin Guidry - Last Filed: 09/04/17 15:31> tPA Exclusion checklist 3-4.5h - Time Elapsed Date last known well: 09/02/17 Time last known well: 21:00 Elaspsed time: 1 Day(s) and 18 Hour(s) and 29 Minutes - Thrombolytic Therapy Candidate Is patient eligible for thrombolytic therapy: No - Exclusion Criteria 3-4.5 hr SBP greater than 185 or DBP greater than 110mmHg despite tx: Yes Recent IC/spinal surgery,head trauma or stroke<3mos.: No Hx IC hemorrhage, IC neoplasm, AV malformation or aneurysm: No Active internal bleeding: No Blding diathesis(low plt ct, inc PTT,INR>1.7 or use of NOAC): No Symptoms suggest subarachnoid hemorrhage: No CT demonstrates multilobar infarct(>1/3 cerebral hemiphere): No Blood glucose concentration less than 50mg/dL (2.7mmol/L): No - Ineligibility reason(s) Reasons No tPA given: Outside of window - delayed arrival (Symptoms started on wakening around 8AM this morning. Outside of window for TPA administration. ) <Huseyin Guidry - Last Filed: 09/04/17 15:31> Critical Care Time/MDM Note - Medical Decision Making Note: Patient is an 87 year old male, with a significant past medical history of HTN, bullous pemphigoid, prostate Ca, who presents to the emergency department after family witnessed acute onset of slurred speech, L sided facial droop/drooling and gait instability starting this AM around 8AM. Pt vitals stable. Ddx included TIA, CVA, metabolic derangement, UTI, malignant hypertension. Plan as below: - CBC, CMP, lipid profile, cardiac profile, Coags - UA - Stat non-con head CT. Will need f/u MRI - Neurology, cardiology consult - ASA, Statin - EKG, Echo 09/03/17 17:[address] Walden. Informed of case, will see pt tonight for admission. Decision to Admit to Telemetry. Spoke with Dr. Dupont, Neurologist pharmacy salesperson, informed of case. Will give high dose ASA, statin, non-con MRI. Plan for BP control 160-180s systolic range today , with plan for <160 tomorrow. Pt outside of range for TPA administration. Will not transfer for thrombectomy as pt has returned to neurologic baseline upon presentation to ED, with NIHSS score of 1. Confirmed plan with Dr. Dupont. 09/03/17 18:26 <Huseyin Guidry - Last Filed: 09/04/17 15:31>
[2017-09-03 16:56] LABS: BASO % 0.9 % (0-2.0); EOS % 5.8 % (0-4.5); HEMATOCRIT 38.5 % (35.4-49); HEMOGLOBIN 13.5 GM/dL (11.7-16.9); LYMPH % 15.1 % (8-40); MCH 31.7 pg (25.7-33.7); MEAN CELL VOLUME 90.7 fl (80-96); MEAN PLT VOLUME 8.5 fl (7.5-11.1); MONO % 15.1 % (3.8-10.2); NEUT % 63.1 % (42.8-82.8); PLATELET COUNT 262 K/MM3 (134-434); RBC 4.25 M/mm3 (4.00-5.60); RDW 15.2 % (11.9-15.9); WHITE BLOOD COUNT 6.4 K/mm3 (4.0-10.0)
[2017-09-03] MEDS: SODIUM CHLORIDE 1,000 ML IV SCH (17:01)
[2017-09-03 17:10] LABS: INR 0.99 (0.82-1.09); PROTHROMBIN TIME (PATIENT) 11.2 SEC (9.7-13.0)
--- NOTE | 2017-09-03 17:20 | PDOC ---
Attending Attestation - Resident Resident Name: Huseyin Guidry - ED Attending Attestation I have performed the following: I have examined & evaluated the patient, The case was reviewed & discussed with the resident, I agree w/resident's findings & plan, Exceptions are as noted - HPI HPI: 09/03/17 17:14 87 YO MALE BROUGHT IN BY FAMILY FOR SLURRED SPEECH,LEFT FOOT NUMBNESS AN DIFFICULTY WALKING TODAY -he normally uses his elliptical machine every day and this is a drastic change from his baseline -the symptoms started at 8am and he is outside the window for tpa NIHSS pt has no drift,no obvious facial droop but diff ambulating - - Physicial Exam PE: 09/03/17 17:22 87 yo male brought in by family for intermittent drooling,slurred speech,diff ambulating since 8am. Currently he is alert and oriented x 3 with no obvious facial droop or gross motor weakness but he has difficulty walking 09/03/17 18:44 head ncat eyes elian eomi neck supple lungs cta b/l abd soft,nontender - Medical Decision Making 09/03/17 19:0 CT SCAN head - hypodense lesion in left basal ganglia, possible acute infarct neurology Dr Dupont consulted, pt given ASA ,plan -MRI 09/03/17 19:20
[2017-09-03 17:23] LABS: ALBUMIN 3.9 g/dl (3.4-5.0); ANION GAP 9 (8-16); BILIRUBIN,TOTAL 0.5 mg/dL (0.2-1.0); BLOOD UREA NITROGEN 24 mg/dL (7-18); CALCIUM 8.6 mg/dL (8.5-10.1); CHLORIDE 102 mmol/L (98-107); CHOLESTEROL 207 mg/dL (50-200); CO2 29 mmol/L (21-32); CREATININE 0.9 mg/dL (0.7-1.3); GLUCOSE,RANDOM 93 mg/dL (74-106); POTASSIUM 4.1 mmol/L (3.5-5.1); SGOT/AST 19 U/L (15-37); SGPT/ALT 24 U/L (12-78); SODIUM 140 mmol/L (136-145); TOT PROT 6.9 g/dl (6.4-8.2); TRIGLYCERIDES 130 mg/dL (35-160)
[2017-09-03 17:24] LABS: ALK PHOS 84 U/L (45-117); HDL CHOLESTEROL 63 mg/dL (40-60)
[2017-09-03] MEDS ORDERED: LABETALOL HCL 5 MG/1 ML (100MG/20 ML VIAL) IVPUSH ONE ×2 (17:30→18:26)
[2017-09-03] MEDS ORDERED: LABETALOL HCL 200 MG TABLET (FP) PO ONE (17:31)
[2017-09-03] MEDS ORDERED: LABETALOL HCL 5 MG/1 ML (200MG/40ML VIAL) IVPB ONE (17:33)
[2017-09-03] MEDS ORDERED: LABETALOL HCL 100 MG TABLET (FP) ONE (17:34)
[2017-09-03 18:32] LABS: URINE APPEARANCE CLEAR; URINE BILIRUBIN NEGATIVE (<2.0 mg/dL); URINE COLOR STRAW; URINE GLUCOSE (UA) NEGATIVE (NEGATIVE); URINE KETONE NEGATIVE (NEGATIVE); URINE LEUK ESTERASE NEGATIVE (NEGATIVE); URINE NITRITE NEGATIVE (NEGATIVE); URINE PROTEIN NEGATIVE (NEGATIVE); URINE UROBILINOGEN NEGATIVE mg/dL (0.2-1.0)
[2017-09-03] MEDS ORDERED: ATORVASTATIN CA 40 MG TABLET (FP) PO ONE (18:33)
[2017-09-03] MEDS ORDERED: ATORVASTATIN CA 40 MG TABLET (FP) ONE (19:09)
[2017-09-03] MEDS ORDERED: ASPIRIN 325 MG TABLET PO ONE (19:20)
[2017-09-03] MEDS ORDERED: ASPIRIN 325 MG TABLET ONE (20:07)
[2017-09-03] MEDS ORDERED: ACETAMINOPHEN 325 MG TABLET (FP) PO PRN (22:22)
--- NOTE | 2017-09-03 22:49 | HP ---
Admitting History and Physical - Admission History of Present Illness: Patient is an 87 year old male, with a significant past medical history of HTN, bullous pemphigoid, prostate Ca, who presents to the emergency department after family witnessed acute onset of slurred speech, L sided facial droop/drooling and gait instability starting this AM around 8AM. Pt was in his normal state of health yesterday evening, but noted some mild confusion/disorientation in the late evening, however thought nothing of it. Starting around 8AM, Pt family noted L sided facial droop with drooling and acute onset of slurred speech, in addition to inability to ambulate due to lower extremity weakness, L>R. Per family, these symptoms occurred intermittently with brief periods of return to baseline. Pt with hx of prior stroke, DC, CVD, or chronic neurologic conditions. Pt currently not on AC. Pt with good exercise tolerance, uses the eliptical for an hour a day. No recent travel or sick contacts. Does not follow with neurologist. In addition, patient endorses L leg weakness/numbness, gait instability. Patient denies palpitations, chest pain, shortness of breath, cough, headache or dizziness. Denies fever, chills, nausea, vomiting, diarrhea and constipation. Denies dysuria, frequency, urgency and hematuria. Allergies: None History Source: Patient, Family Member, Medical Record Limitations to Obtaining History: No Limitations - Past Medical History Cardiovascular: Yes: AFIB (possibly flutter / s/p ablation 1999 had a/c for "short time after " no repeated SX --ie Palpitations), HTN Rheumatology: Yes: Other (bullous pemphigoid disease on MTX / prednisone) Dermatology: Yes: Other (bullous pemphigoid disease on MTX / prednisone) - Smoking History Smoking history: Former smoker Have you smoked in the past 12 months: No - Alcohol/Substance Use Hx Alcohol Use: No - Social History Usual Living Arrangement: Yes: With Spouse ADL: Independent Home Medications - Allergies Allergies/Adverse Reactions: Allergies Allergy/AdvReac Type Severity Reaction Status Date / Time alprazolam [From Xanax] Allergy Verified 09/03/17 16:17 codeine Allergy Verified 09/03/17 16:17 - Home Medications Home Medications: Ambulatory Orders Cholecalciferol (Vitamin D3) [Vitamin D3] 50,000 unit PO WEEKLY 07/28/16 Halobetasol Prop 0.05% Tp Crm [Ultravate (Nf) -] 1 applic TP DAILY 07/28/16 Labetalol HCl [Normodyne -] 200 mg PO BID 07/28/16 predniSONE [Deltasone -] 2 mg PO DAILY 07/28/16 Hydrochlorothiazide [Hctz -] 12.5 mg PO DAILY 09/03/17 Methotrexate Sodium [Methotrexate] 0 mg PO WEEKLY 09/03/17 Review of Systems - Review of Systems Constitutional: reports: Weakness (for approx 2-3 days). denies: Chills, Diaphoresis, Fever Eyes: reports: No Symptoms HENT: reports: Difficult Swallowing (reports dificulty swallowing over last several months --"not new" no coughing or chocking with meals) Neck: reports: No Symptoms Cardiovascular: denies: Chest Pain, Palpitations, Shortness of Breath Respiratory: reports: No Symptoms. denies: Cough Gastrointestinal: reports: No Symptoms. denies: Abdominal Pain Genitourinary: reports: No Symptoms Breasts: reports: No Symptoms Reported Musculoskeletal: reports: Muscle Weakness (both legs felt weak monday and monday [employer]) Integumentary: reports: Lesions (flat erythematous patches - resolving bollous lesions) Neurological: reports: Change in Speech (slurred speech), Dizziness (felt dizzy several days earlier / through yesterday -had to hold on the furniture and door when ambulating -- reports felt dizzy even sitting down), Unsteady Gait, Weakness. denies: Headache, Numbness Endocrine: reports: No Symptoms Hematology/Lymphatic: reports: No Symptoms Psychiatric: reports: No Symptoms Physical Examination Vital Signs: Vital Signs Temperature 98.2 F 09/03/17 21:39 Pulse Rate 66 09/03/17 21:39 Respiratory Rate 18 09/03/17 21:39 Blood Pressure 169/69 09/03/17 21:39 O2 Sat by Pulse Oximetry (%) 96 09/03/17 21:54 Constitutional: Yes: Well Nourished, No Distress, Calm Eyes: Yes: Conjunctiva Clear, EOM Intact HENT: Yes: Atraumatic, Normocephalic, Other (right facila droop). No: Drooling Neck: Yes: Supple, Trachea Midline Cardiovascular: Yes: Regular Rate and Rhythm Respiratory: Yes: Regular, CTA Bilaterally Gastrointestinal: Yes: Normal Bowel Sounds, Soft ...Rectal Exam: Yes: Deferred Renal/: Yes: WNL Breast(s): Yes: WNL Musculoskeletal: Yes: Muscle Weakness Extremities: Yes: WNL. No: Calf Tenderness, Deformity Edema: No Peripheral Pulses WNL: Yes Neurological: Yes: Oriented, Confusion (? seems forgetful w/r/t events), Unsteady Gait, Weakness Psychiatric: Yes: Alert, Oriented Labs: CBC, BMP 09/03/17 16:37 09/03/17 16:34 Problem List - Problems (1) CVA (cerebral vascular accident) Assessment/Plan: CT scan MRI ordered carotid doppler Echocardiogram ASA/ Stat[place] telemetry r/o arrhythmia - patient with previous hx of arrhythmia -- unclear fib/ flutter had ablation 1998 no repeated symptoms -- unclear how much cardiac follow up since Cardiology Consult Dr Andino Neurology consult Dr Dupont Code(s): I63.9 - CEREBRAL INFARCTION, UNSPECIFIED (2) TIA (transient ischemic attack) Assessment/Plan: some resolution of symptoms since arrival to ER speech improved but still with right facial droop Code(s): G45.9 - TRANSIENT CEREBRAL ISCHEMIC ATTACK, UNSPECIFIED (3) Bullous pemphigoid Assessment/Plan: currently on MTX / Rutoxin / prednisone has had recurrrent exacerbations in the recent past will start IV steroids -stress dose -in attempt to prevent flair up reports next infusion of rituxan scheduled in at end of month Code(s): L12.0 - BULLOUS PEMPHIGOID (4) HTN (hypertension) Assessment/Plan: unclear if well controlled at home recent Bp med change in attempt to see if Bollous Pemphigoid improves ( no improvement) will need to reasses medications for improved control Code(s): I10 - ESSENTIAL (PRIMARY) HYPERTENSION (5) Weakness Code(s): R53.1 - WEAKNESS
[2017-09-03] MEDS: methylPREDNISolone NA SUCC 40 MG/1 ML VIAL IVPUSH SCH (23:36)
[2017-09-04 06:05] LABS: BASO % 0.5 % (0-2.0); EOS % 0.3 % (0-4.5); HEMATOCRIT 37.8 % (35.4-49); HEMOGLOBIN 13.3 GM/dL (11.7-16.9); LYMPH % 9.8 % (8-40); MCH 32.1 pg (25.7-33.7); MCHC 35.3 g/dl (32.0-35.9); MEAN PLT VOLUME 8.4 fl (7.5-11.1); MONO % 2.2 % (3.8-10.2); NEUT % 87.2 % (42.8-82.8); PLATELET COUNT 260 K/MM3 (134-434); RBC 4.16 M/mm3 (4.00-5.60); RDW 15.5 % (11.9-15.9); WHITE BLOOD COUNT 4.9 K/mm3 (4.0-10.0)
[2017-09-04] MEDS: LABETALOL HCL 200 MG TABLET (FP) PO SCH ×2 (06:27→21:31)
[2017-09-04 06:37] LABS: ANION GAP 8 (8-16); BLOOD UREA NITROGEN 21 mg/dL (7-18); CALCIUM 8.5 mg/dL (8.5-10.1); CHLORIDE 104 mmol/L (98-107); CO2 29 mmol/L (21-32); CREATININE 0.9 mg/dL (0.7-1.3); GLUCOSE,RANDOM 142 mg/dL (74-106); MAGNESIUM 2.1 mg/dL (1.8-2.4); POTASSIUM 3.9 mmol/L (3.5-5.1); SODIUM 141 mmol/L (136-145)
--- NOTE | 2017-09-04 08:53 | CON.CARD ---
Consult Consult Specialty:: cardio - History of Present Illness Chief Complaint: slurred speech History of Present Illness: 87 yo man presented to ER on 09/03 with acute onset of slurred speech, L sided facial droop/drooling and gait instability starting around 8AM on DOA. was outside window for t-PA. sx's had largely recovered while in ER. pt fit, regular exercise regimen mult times per week. denies cp, sob or decr ET of late. denies palpitations including on day of new neuro deficits no syncope h/o longstanding HTN 50+ yrs. admits his home bp's are frequently up to 180-200 range of late. previously (on lisinopril and amlodipine regimen) had been 150s-160s mostly. changed to labetalol and hctz lately to observe if pemphigoid improved, which it did not per pt and dtr (). says he had atrial flutter ablation in 1998. saw EP after that once, never had sx's again (palpitations). his PMD stopped AC after 3 mo or so. PMH: afib/flutter--s/p ablation ([facility]), off AC s/p ablation HTN with severe white-coat component HPL prostate CA s/p prostatectomy bullous pemphigoid (MTX and rituximab) remote ex-cigs - Past Medical History Rheumatology: Yes: Other (bullous pemphigoid disease on MTX / prednisone) Dermatology: Yes: Other (bullous pemphigoid disease on MTX / prednisone) - Alcohol/Substance Use Hx Alcohol Use: No - Smoking History Smoking history: Former smoker Have you smoked in the past 12 months: No - Social History ADL: Independent Home Medications - Allergies Allergies/Adverse Reactions: Allergies Allergy/AdvReac Type Severity Reaction Status Date / Time alprazolam [From Xanax] Allergy Verified 09/03/17 16:17 codeine Allergy Verified 09/03/17 16:17 - Home Medications Home Medications: Ambulatory Orders Cholecalciferol (Vitamin D3) [Vitamin D3] 50,000 unit PO WEEKLY 07/28/16 Halobetasol Prop 0.05% Tp Crm [Ultravate (Nf) -] 1 applic TP DAILY 07/28/16 Labetalol HCl [Normodyne -] 200 mg PO BID 07/28/16 predniSONE [Deltasone -] 2 mg PO DAILY 07/28/16 Hydrochlorothiazide [Hctz -] 12.5 mg PO DAILY 09/03/17 Methotrexate Sodium [Methotrexate] 0 mg PO WEEKLY 09/03/17 Family Disease History - Family Disease History Family History: Denies (no known cmp) Review of Systems - Review of Systems Constitutional: denies: Chills, Fever Eyes: denies: Eye Pain HENT: denies: Nasal Congestion Neck: denies: Stiffness Cardiovascular: denies: Palpitations Respiratory: denies: Orthopnea, PND Gastrointestinal: denies: Diarrhea, Rectal Bleeding Genitourinary: denies: Burning, Hematuria Musculoskeletal: denies: Muscle Pain Integumentary: denies: Rash Neurological: denies: Dizziness, Seizure, Syncope Endocrine: denies: Excessive Sweating Hematology/Lymphatic: denies: Excessive Bleeding Vital Signs: Vital Signs Temperature 98.0 F 09/04/17 08:27 Pulse Rate 83 09/04/17 08:27 Respiratory Rate 18 09/04/17 08:27 Blood Pressure 178/89 09/04/17 08:27 O2 Sat by Pulse Oximetry (%) 94 L 09/04/17 08:27 Constitutional: Yes: Well Nourished, No Distress Eyes: No: Sclera Icterus HENT: No: Nasal Congestion Neck: No: Decreased ROM Respiratory: Yes: CTA Bilaterally. No: Accessory Muscle Use, Rales, Wheezes Gastrointestinal: Yes: Normal Bowel Sounds. No: Distention, Hepatomegaly, Palpable Mass, Tenderness Cardiovascular: Yes: Regular Rate and Rhythm JVD: No Carotid Bruit: No PMI: Non-Displaced Heart Sounds: Yes: S1, S2. No: Gallop Murmur: No: Systolic Murmur, Diastolic Murmur Musculoskeletal: Yes: Other (No kyphosis) Extremities: No: Cold, Cyanosis Edema: No Peripheral Pulses: 2+ Left Carotid, 2+ Right Carotid, 2+ Left Doralis Pedis, 2+ Right Dorsalis Pedis Integumentary: No: Jaundice Neurological: Yes: Alert, Oriented (x3) Psychiatric: No: Agitated - Other Data Labs, Other Data: CBC, BMP 09/04/17 05:48 09/04/17 05:48 INR, PTT INR 0.99 (0.82-1.09) 09/03/17 16:37 Troponin, BNP 09/03/17 16:34 Troponin I < 0.02 Troponin, BNP 09/03/17 16:34 Troponin I < 0.02 Laboratory Tests 09/03/17 09/03/17 09/04/17 16:34 16:37 05:48 WBC 4.9 Hgb 13.3 Plt Count 260 INR 0.99 Sodium Potassium Carbon Dioxide BUN Creatinine AST 19 D ALT 24 Albumin 3.9 D Triglycerides 130 Cholesterol 207 H Total LDL Cholesterol 126 H HDL Cholesterol 63 H 09/04/17 05:48 WBC Hgb Plt Count INR Sodium 141 Potassium 3.9 Carbon Dioxide 29 BUN 21 H Creatinine 0.9 AST ALT Albumin Triglycerides Cholesterol Total LDL Cholesterol HDL Cholesterol Assessment/Plan EKG: NSR, PVC. LAFB. BYRON. incomplete LBBB--QRS slightly wider vs prior 07/28/16 CXR: clear lungs/pleura CT head: ischemic infarct (indeterminate age) in L caudate nucleus/cabrera radiata/corpus striatum tele: NSR acute ischemic CVA: -LDL 120s, start atorva 40 (elderly pt). admits to having self-d/c'd statin a while ago -h/o HTN which has been poorly controlled--? etiology of current stroke. bp control as disc'd below -aspirin 81 as doing -s/p remote fib/flutter ablation, off AC per EP (Mikael Lopez, [facility]). continue tele monitoring here--would rec outpt loop recorder for PAF/flutter if tele uneventful -f/u carotids (done), echo h/o aflutter, s/p remote ablation: -in sinus here -outpt monitoring as above abnormal EKG: -incomplete LBBB new vs prior -no acute cardiac ischemia sx's. -trop neg x1, rpt ordered -check echo HTN: -on labetalol and HCTZ at home, both continued here -tolerated FERNY-I and amlodipine in past per dtr (stopped both to observe for improvement in pemphigoid--there was no improvement seen.) -home BPs chronically uncontrolled, worse of late--will need intensive bp mgmt going forward. -however, in setting of acute CVA we will avoid overzealous lowering which may worsen neuro status. -goal bp <160/[address] ramos, currently running above that. -add amlodipine low dose (start 2.5mg qd). -can resume his prior lisinopril in future if bp's remain suboptimal HPL: -as above
--- NOTE | 2017-09-04 09:45 | CONSULT ---
Consult - text type - Consultation Consultation Note: Neurology History of Present Illness Patient is an 87 year old male, with a significant past medical history of HTN, bullous pemphigoid, prostate Ca, who presented to the emergency department after family witnessed slurred speech, facial droop/drooling and gait instability starting morning of admission. Per family, these symptoms occurred intermittently with brief periods of return to baseline and therefore was not immediately brought to the hospital. Eventually symptoms recurred and therefore brought to hospital for evaluation. CT head completed and showed age indeterminate L basal ganglia hypodensity. In the past reportedly with Afib s/p reported ablation, not on AC at this time. I was contacted by ER and spoke with Dr. Andino, cardiology. The patient was out of TPA window. Also minimal deficit and not candidate for thrombectomy. Overnight, permissive HTN allowed. Patient given ASA 325mg dose. He does report feeling better this AM but with droop and speech difficulty. Allergies: None Past surgical history: Cataract surgery 3 years ago Social History: No smoking, alcohol or drug abuse PMD: Dr. Walden Past History - Past Medical History Cancer: Yes (prostate) Cardiac Disorders: Yes (afib) COPD: No HTN: Yes Hypercholesterolemia: Yes - Surgical History Appendectomy: Yes GI Surgery: Yes (inguinal hernia repair) - Suicide/Smoking/Psychosocial Hx Smoking History: Former smoker Have you smoked in the past 12 months: No Information on smoking cessation initiated: No Hx Alcohol Use: No Drug/Substance Use Hx: No Substance Use Type: None Hx Substance Use Treatment: No - Past Medical History Allergies/Adverse Reactions: Allergies Allergy/AdvReac Type Severity Reaction Status Date / Time alprazolam [From Xanax] Allergy Verified 09/03/17 16:17 codeine Allergy Verified 09/03/17 16:17 Home Medications: Ambulatory Orders Cholecalciferol (Vitamin D3) [Vitamin D3] 50,000 unit PO WEEKLY 07/28/16 Halobetasol Prop 0.05% Tp Crm [Ultravate (Nf) -] 1 applic TP DAILY 07/28/16 Labetalol HCl [Normodyne -] 200 mg PO BID 07/28/16 predniSONE [Deltasone -] 2 mg PO DAILY 07/28/16 Hydrochlorothiazide [Hctz -] 12.5 mg PO DAILY 09/03/17 Methotrexate Sodium [Methotrexate] 0 mg PO WEEKLY 09/03/17 Review of Systems GENERAL/CONSTITUTIONAL: No fever or chills. HEAD, EYES, EARS, NOSE AND THROAT: No change in vision. No ear pain or discharge. No sore throat. CARDIOVASCULAR: No chest pain or shortness of breath RESPIRATORY: No cough, wheezing, or hemoptysis. GASTROINTESTINAL: No nausea, vomiting, diarrhea or constipation. GENITOURINARY: No dysuria, frequency, or change in urination. MUSCULOSKELETAL: No joint or muscle swelling or pain. No neck or back pain. SKIN: No rash NEUROLOGIC: No headache, vertigo, loss of consciousness. +BL LE weakness, L>R, gait instability. Slurred speech, drooling. ENDOCRINE: No increased thirst. No abnormal weight change HEMATOLOGIC/LYMPHATIC: No anemia, easy bleeding, or history of blood clots. ALLERGIC/IMMUNOLOGIC: No hives or skin allergy. *Physical Exam Vital Signs Temperature 98.0 F 09/04/17 08:27 Pulse Rate 83 09/04/17 08:27 Respiratory Rate 18 09/04/17 08:27 Blood Pressure 178/89 09/04/17 08:27 O2 Sat by Pulse Oximetry (%) 94 L 09/04/17 08:27 GENERAL: Elderly man, Awake, alert, and fully oriented, in no acute distress HEAD: No signs of trauma, normocephalic, atraumatic EYES: L eye with supero-lateral deviation (pt baseline). PERRLA, EOMI, sclera anicteric, conjunctiva clear ENT: Auricles normal inspection, hearing grossly normal, nares patent, oropharynx clear withoutexudates. Moist mucosa NECK: Normal ROM, supple, no lymphadenopathy, JVD, or masses LUNGS: No distress, speaks full sentences, clear to auscultation bilaterally HEART: Regular rate and rhythm, normal S1 and S2, no murmurs, rubs or gallops, peripheral pulses normal and equal bilaterally. ABDOMEN: Soft, nontender, normoactive bowel sounds. No guarding, no rebound. No masses EXTREMITIES : BL bright red maculo-papular rash on flexor/extensor surface of forearms. Normal inspection, Normal range of motion, no edema. No clubbing or cyanosis. NEUROLOGICAL: Cranial nerves II through XII appears except facial droop and speech difficulty, with L eye supero-lateral deviation. strenght symetric 5-/5 b /l in LE, 5/5 in UE Sensation intact BL in all dermatomes. 5/5 search engine marketing specialist strength. No pronator drift. Gait deferred CBCD WBC 4.9 K/mm3 (4.0-10.0) 09/04/17 05:48 RBC 4.16 M/mm3 (4.00-5.60) 09/04/17 05:48 Hgb 13.3 GM/dL (11.7-16.9) 09/04/17 05:48 Hct 37.8 % (35.4-49) 09/04/17 05:48 MCV 91.0 fl (80-96) 09/04/17 05:48 MCHC 35.3 g/dl (32.0-35.9) 09/04/17 05:48 RDW 15.5 % (11.9-15.9) 09/04/17 05:48 Plt Count 260 K/MM3 (134-434) 09/04/17 05:48 MPV 8.4 fl (7.5-11.1) 09/04/17 05:48 CMP Sodium 141 mmol/L (136-145) 09/04/17 05:48 Potassium 3.9 mmol/L (3.5-5.1) 09/04/17 05:48 Chloride 104 mmol/L (98-107) 09/04/17 05:48 Carbon Dioxide 29 mmol/L (21-32) 09/04/17 05:48 Anion Gap 8 (8-16) 09/04/17 05:48 BUN 21 mg/dL (7-18) H 09/04/17 05:48 Creatinine 0.9 mg/dL (0.7-1.3) 09/04/17 05:48 Creat Clearance w eGFR > 60 (>60) 09/03/17 16:34 Random Glucose 142 mg/dL (74-106) H D 09/04/17 05:48 Calcium 8.5 mg/dL (8.5-10.1) 09/04/17 05:48 Total Bilirubin 0.5 mg/dL (0.2-1.0) D 09/03/17 16:34 AST 19 U/L (15-37) D 09/03/17 16:34 ALT 24 U/L (12-78) 09/03/17 16:34 Alkaline Phosphatase 84 U/L (45-117) D 09/03/17 16:34 Total Protein 6.9 g/dl (6.4-8.2) D 09/03/17 16:34 Albumin 3.9 g/dl (3.4-5.0) D 09/03/17 16:34 CARDIAC ENZYMES Creatine Kinase 175 IU/L (39-308) 09/03/17 16:34 Troponin I < 0.02 ng/ml (0.00-0.05) 09/03/17 16:34 CT head reviewed Plan: 87 year old male, with a significant past medical history of HTN, bullous pemphigoid, prostate Ca, who presented to the emergency department after family witnessed slurred speech, facial droop/drooling and gait instability starting morning of admission. Per family, these symptoms occurred intermittently with brief periods of return to baseline and therefore was not immediately brought to the hospital. Eventually symptoms recurred and therefore brought to hospital for evaluation. CT head completed and showed age indeterminate L basal ganglia hypodensity. In the past reportedly with Afib s/p reported ablation, not on AC at this time. I was contacted by ER and spoke with Dr. Andino, cardiology. The patient was out of TPA window. Also minimal deficit and not candidate for thrombectomy. Overnight, permissive HTN allowed. Patient given ASA 325mg dose. He does report feeling better this AM but with droop and speech difficulty. -MRI brain -Carotid doppler -Echo -ASA 81mg daily recommended -Statin, LDL 126, goal <70 if CVA -Speech/swallow eval -Telemetry monitoring -PT -BP range <160/100 for now, permissive HTN overnight helpful -Follow up cardiology recs -DVT ppx
[2017-09-04] MEDS: methylPREDNISolone NA SUCC 40 MG/1 ML VIAL IVPUSH SCH ×2 (09:53→21:31)
[2017-09-04] MEDS: DOCUSATE SODIUM 100 MG CAPSULE (FP) PO SCH ×2 (09:53→21:31)
[2017-09-04] MEDS: HYDROCHLOROTHIAZIDE 12.5 MG CAPSULE (FP) PO SCH (09:53)
[2017-09-04] MEDS: PANTOPRAZOLE 40 MG TABLET (FP) PO SCH (09:53)
[2017-09-04] MEDS: amLODIPine BESYLATE 2.5 MG TABLET (FP) PO SCH (09:58)
[2017-09-04] MEDS: ASPIRIN COATED 81 MG TABLET.EC PO SCH (09:59)
[2017-09-04] MEDS ORDERED: PATIENT'S OWN MEDICATION (NON-FORMULARY) (Halobetasol Prop 0.05% Tp Crm 1 APPLIC) TP SCH ×2 (10:00→14:30)
--- NOTE | 2017-09-04 10:45 | EKG ---
Test Reason : Blood Pressure : / mmHG Vent. Rate : 081 BPM Atrial Rate : 081 BPM P-R Int : 216 ms QRS Dur : 116 ms QT Int : 422 ms P-R-T Axes : 052 -47 012 degrees QTc Int : 490 ms SINUS RHYTHM WITH 1ST DEGREE A-V BLOCK POSSIBLE LEFT ATRIAL ENLARGEMENT LEFT AXIS DEVIATION NON-SPECIFIC INTRA-VENTRICULAR CONDUCTION BLOCK POSSIBLE ANTERIOR INFARCT (CITED ON OR BEFORE 03-SEP-2017) ABNORMAL ECG WHEN COMPARED WITH ECG OF 03-SEP-2017 17:02, PREMATURE VENTRICULAR COMPLEXES ARE NO LONGER PRESENT DC INTERVAL HAS INCREASED Confirmed by ALEENA BARRIOS MD ([id number]) on 09/04/2017 10:45:39 AM Referred By: Confirmed By:ALEENA BARRIOS MD
--- NOTE | 2017-09-04 11:20 | EKG ---
Test Reason : Blood Pressure : / mmHG Vent. Rate : 067 BPM Atrial Rate : 067 BPM P-R Int : 184 ms QRS Dur : 126 ms QT Int : 428 ms P-R-T Axes : 046 -41 034 degrees QTc Int : 452 ms SINUS RHYTHM WITH OCCASIONAL PREMATURE VENTRICULAR COMPLEXES POSSIBLE LEFT ATRIAL ENLARGEMENT LEFT AXIS DEVIATION NON-SPECIFIC INTRA-VENTRICULAR CONDUCTION BLOCK ABNORMAL ECG WHEN COMPARED WITH ECG OF 28-JUL-2016 10:12, PREMATURE VENTRICULAR COMPLEXES ARE NOW PRESENT Confirmed by ALEENA BARRIOS MD ([id number]) on 09/04/2017 11:20:18 AM Referred By: Confirmed By:ALEENA BARRIOS MD
--- NOTE | 2017-09-04 11:35 | CONSULT ---
Admitting History and Physical - Primary Care Physician PCP: Helga Mckeon I - Admission History of Present Illness: Per EMR: Patient is an 87 year old male, with a significant past medical history of HTN, bullous pemphigoid, prostate Ca, who presented to the emergency department after family witnessed slurred speech, facial droop/drooling and gait instability starting morning of admission. Per family, these symptoms occurred intermittently with brief periods of return to baseline and therefore was not immediately brought to the hospital. Eventually symptoms recurred and therefore brought to hospital for evaluation. Pt known to me from past. I had treated his who had a stroke. Right facial is new. History Source: Patient, Medical Record Limitations to Obtaining History: No Limitations - Past Medical History Rheumatology: Yes: Other (bullous pemphigoid disease on MTX / prednisone) Dermatology: Yes: Other (bullous pemphigoid disease on MTX / prednisone) - Smoking History Smoking history: Former smoker Have you smoked in the past 12 months: No - Alcohol/Substance Use Hx Alcohol Use: No - Social History ADL: Independent History - Admission Reason For Visit: NUMBNESS/ SLURR SPEECH - Diagnostics CT Scan: Report Reviewed (age indeterminate L basal ganglia hypodensity) MRI: Pending - General Mental Status: Alert and Oriented, Awake and Alert, Able to Follow Commands Attention: Intact Ability to Follow Directions: Excellent Head/Neck Control: WFL - Hearing Hearing: Normal Hearing Aide: No With Patient: No Speech Evaluation - Communication Primary Language: SLOV[place] Communication: Yes: Within Normal Limits Oral Expression Ability: Yes: Mild Impairment - Speech Production Able to Make Needs Known: Yes: WNL Intelligibility: Yes: Mildly Impaired - Speech Characteristics Voice Loudness: Normal Voice Pitch: Yes: Normal Voice Phonatory-based Quality: Yes: Normal Speech Clarity: < 100% Nasal Resonance: Normal Articulation: Yes: Imprecise (mild) - Language/Auditory Comprehension Follows: Yes: 2 Stage Simple Commands - Language/Verbal Expression Able to Respond to Simple Queries: Yes: WNL Able to Communicate Wants and Needs: Yes: WNL Functional Communication Status: Yes: WNL - Memory/Perception oysterman Memory: Yes: WNL Short Term Memory: Yes: WNL - Swallow Evaluation/Bedside Assessment Current Nutritional Intake: NPO Oral Secretions: Yes: Drooling (intermittent) Dentition: Yes: Adequate Facial Symmetry at Rest: Facial Droop Right Facial Symmetry on Retraction: Facial Droop Right (slight) Sensation: Reduced Right Against Resistance Opening: Normal Against Resistance Closing: Normal Pucker Lips: Droops Right Smile: Droops Right Lingual Movement: Symmetric Lingual Speed of Movement: Reduced Lingual Movement Strgth Against Opposition: Reduced Lingual Movement Characteristics: Normal Laryngeal Movement: Labored,delay initiation Rate of Intake: WFL Bolus Size: WFL Chewing: WFL Oral Prep Time: WFL A-P Transit: WFL Pocketing: Present Right Timing of Swallow: Delayed Coughing/Throat Clear: No (3 oz water test (-)) Change in Voice: No Recommendations - Speech Evaluation, Impression/Plan Impression: Right facial with mild dysarthria. Impaired sensation right facial with food residue/mild drooling. Cognitively intact. Language function WNL. Pt reports recent h/o coughing while eating nuts. - Dysphagia Impressions/Plan Swallowing Skills: Impaired Dysphagia Impressions: Mild Impairment, Ongoing Evaluation *Silent aspiration: cannot be R/O at bedside Recommendations: Modified Barium Swallow
[2017-09-04 16:31] VITALS: BMI 28.3
--- NOTE | 2017-09-04 18:50 | PN ---
Progress Note (short form) - Note Progress Note: patient in bed remains with residual mild slurring of speech and right facial droop able to get out of bed / ambulates without being dizzy -- states improved balance walks cautiously Vital Signs Period Temp Pulse Resp BP Sys/Aguillon Pulse Ox Last 24 Hr 98.0 F-98.4 F 61-83 18-18 164-186/69-96 94-100 right facial droop / mild speech slurring neck supple heart S1/S2 reg lung clear abd soft ext no edema FROM no significant weakness appreciated 5/5 motor upper and lower extremities CBC, BMP 09/04/17 05:48 09/04/17 05:48 Troponin, BNP 09/04/17 09:45 Troponin I < 0.02 cholesterol 207 total LDL 126 HDL 63 hemoplobin A1c 6.3 EKG: NSR, PVC. LAFB. BYRON. incomplete LBBB--QRS slightly wider vs prior 07/28/16 CXR: clear lungs/pleura CT head: ischemic infarct (indeterminate age) in L caudate nucleus/cabrera radiata/corpus striatum tele: NSR Active Medications Acetaminophen (Tylenol -) 650 mg PO Q6H PRN PRN Reason: PAIN LEVEL 1-5 Amlodipine Besylate (Norvasc -) 2.5 mg PO DAILY [facility] Last Admin: 09/04/17 09:58 Dose: 2.5 mg Aspirin (Ecotrin -) 81 mg PO DAILY [facility] Last Admin: 09/04/17 09:59 Dose: 81 mg Atorvastatin Calcium (Lipitor -) 40 mg PO [facility] Docusate Sodium (Colace -) 100 mg PO BID [facility] Last Admin: 09/04/17 09:53 Dose: 100 mg Hydrochlorothiazide (Hctz -) 12.5 mg PO DAILY [facility] Last Admin: 09/04/17 09:53 Dose: 12.5 mg Sodium Chloride (Normal Saline -) 1,000 mls @ 42 mls/hr IV ASDIR [facility] Last Admin: 09/03/17 17:01 Dose: 42 mls/hr Labetalol HCl (Normodyne -) 200 mg PO BID [facility] Last Admin: 09/04/17 06:27 Dose: 200 mg Methotrexate (Mexate -) 20 mg PO Tu@1000 [facility] Methylprednisolone Sodium Succinate (Solu-Medrol -) 40 mg IVPUSH BID [facility] Last Admin: 09/04/17 09:53 Dose: 40 mg Non-Formulary Medication (Halobetasol Prop 0.05% Tp Crm) 1 applic TP DAILY [facility] Pantoprazole Sodium (Protonix -) 40 mg PO DAILY [facility] Last Admin: 09/04/17 09:53 Dose: 40 mg Assessment/Plan # CVA ASA / Statins --started on lipitor 40 ( LDL>100) ( had been on "it" previously) Carotids ordered Echo ordered follow on telemetry case discussed with Dr Andino - provides added hx of remote ablation fib/ flutter ( Dr Adriana MANE) swallow evaluation physical therapy evaluation discuss with family benefit of STR #HTN labetolol and HCTZ -home meds continued poor control at home will need closer monitoring and improved control currently acceptable bp - permissive HTN - per neurology #Bullous pemphigoid continue MTX at 20 mg/ monday started IV solumedrol 40 BID / will taper slowly scheduled for rituxan later in the month disposition -- discussed with daughter agree will benefit from STR -- request [facility] as possible location have informed SW for discharge plan Problem List - Problems (1) CVA (cerebral vascular accident) Code(s): I63.9 - CEREBRAL INFARCTION, UNSPECIFIED (2) TIA (transient ischemic attack) Code(s): G45.9 - TRANSIENT CEREBRAL ISCHEMIC ATTACK, UNSPECIFIED (3) Bullous pemphigoid Code(s): L12.0 - BULLOUS PEMPHIGOID (4) HTN (hypertension) Code(s): I10 - ESSENTIAL (PRIMARY) HYPERTENSION (5) Weakness Code(s): R53.1 - WEAKNESS
[2017-09-04] MEDS: SODIUM CHLORIDE 1,000 ML IV SCH (19:15)
[2017-09-04] MEDS ORDERED: ATORVASTATIN CA 40 MG TABLET (FP) PO SCH (22:00)
[2017-09-05 07:00] LABS: BASO % 0.1 % (0-2.0); HEMATOCRIT 35.4 % (35.4-49); HEMOGLOBIN 12.2 GM/dL (11.7-16.9); LYMPH % 6.9 % (8-40); MCH 31.5 pg (25.7-33.7); MCHC 34.3 g/dl (32.0-35.9); MEAN CELL VOLUME 91.7 fl (80-96); MEAN PLT VOLUME 8.5 fl (7.5-11.1); PLATELET COUNT 264 K/MM3 (134-434); RBC 3.86 M/mm3 (4.00-5.60); RDW 15.5 % (11.9-15.9); WHITE BLOOD COUNT 8.8 K/mm3 (4.0-10.0)
[2017-09-05 07:30] LABS: CHLORIDE 107 mmol/L (98-107); POTASSIUM 3.8 mmol/L (3.5-5.1); SODIUM 143 mmol/L (136-145)
[2017-09-05 07:45] LABS: ANION GAP 9 (8-16); BLOOD UREA NITROGEN 37 mg/dL (7-18); CALCIUM 8.3 mg/dL (8.5-10.1); CO2 27 mmol/L (21-32); GLUCOSE,RANDOM 148 mg/dL (74-106); MAGNESIUM 2.3 mg/dL (1.8-2.4)
[2017-09-05] MEDS: HYDROCHLOROTHIAZIDE 12.5 MG CAPSULE (FP) PO SCH (09:31)
[2017-09-05] MEDS: DOCUSATE SODIUM 100 MG CAPSULE (FP) PO SCH (09:31)
[2017-09-05] MEDS: ASPIRIN COATED 81 MG TABLET.EC PO SCH (09:31)
[2017-09-05] MEDS: amLODIPine BESYLATE 2.5 MG TABLET (FP) PO SCH (09:32)
[2017-09-05] MEDS: methylPREDNISolone NA SUCC 40 MG/1 ML VIAL IVPUSH SCH (09:32)
[2017-09-05] MEDS: LABETALOL HCL 200 MG TABLET (FP) PO SCH (09:33)
[2017-09-05] MEDS: PANTOPRAZOLE 40 MG TABLET (FP) PO SCH (09:33)
--- NOTE | 2017-09-05 09:47 | PN ---
Progress Note (short form) - Note Progress Note: Neurology History of Present Illness Patient is an 87 year old male, with a significant past medical history of HTN, bullous pemphigoid, prostate Ca, who presented to the emergency department after family witnessed slurred speech, facial droop/drooling and gait instability starting morning of admission. Per family, these symptoms occurred intermittently with brief periods of return to baseline and therefore was not immediately brought to the hospital. Eventually symptoms recurred and therefore brought to hospital for evaluation. CT head completed and showed age indeterminate L basal ganglia hypodensity. In the past reportedly with Afib s/p reported ablation, not on AC at this time. I was contacted by ER and spoke with Dr. Andino, cardiology. The patient was out of TPA window. Also minimal deficit and not candidate for thrombectomy. MRI brain completed and reviewed and confirmed L basal ganglia including cabrera radiata and caudate. Carotid doppler completed and reviewed, moderate plaque of R common carotid, no HD significant stenosis noted. Permissive HTN allowed over first 24hrs. Patient given ASA 325mg dose in ER and now on daily 81mg. Echo completed and reviewed, LV normal size, EF 60-65%, no wall motion abnormalities. 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 Not able to handwrite name with clarity. Speech appears to be slightly improved. S/S eval completed, note reviewed, for modified barium swallow. Spoke to Dr. Clemente, daughter, via phone and discussed plan for rehab. Preference would be for [facility], discussed with patient case manager, referral already sent. Active Medications Acetaminophen (Tylenol -) 650 mg PO Q6H PRN PRN Reason: PAIN LEVEL 1-5 Amlodipine Besylate (Norvasc -) 2.5 mg PO DAILY [facility] Last Admin: 09/05/17 09:32 Dose: 2.5 mg Aspirin (Ecotrin -) 81 mg PO DAILY [facility] Last Admin: 09/05/17 09:31 Dose: 81 mg Atorvastatin Calcium (Lipitor -) 40 mg PO HS [facility] Last Admin: 09/04/17 21:31 Dose: 40 mg Docusate Sodium (Colace -) 100 mg PO BID [facility] Last Admin: 09/05/17 09:31 Dose: 100 mg Hydrochlorothiazide (Hctz -) 12.5 mg PO DAILY [facility] Last Admin: 09/05/17 09:31 Dose: 12.5 mg Sodium Chloride (Normal Saline -) 1,000 mls @ 42 mls/hr IV ASDIR [facility] Last Admin: 09/04/17 19:15 Dose: 42 mls/hr Labetalol HCl (Normodyne -) 200 mg PO BID [facility] Last Admin: 09/05/17 09:33 Dose: 200 mg Methotrexate (Mexate -) 20 mg PO Tu@1000 [facility] Last Admin: 09/05/17 09:32 Dose: 20 mg Methylprednisolone Sodium Succinate (Solu-Medrol -) 40 mg IVPUSH BID [facility] Last Admin: 09/05/17 09:32 Dose: 40 mg Non-Formulary Medication (Halobetasol Prop 0.05% Tp Crm) 1 applic TP DAILY [facility] Pantoprazole Sodium (Protonix -) 40 mg PO DAILY [facility] Last Admin: 09/05/17 09:33 Dose: 40 mg *Physical Exam Vital Signs Period Temp Pulse Resp BP Sys/Aguillon Pulse Ox Last 24 Hr 97.5 F-98.3 F 77-82 18-20 144-183/71-78 95 GENERAL: Elderly man, Awake, alert, and fully oriented, in no acute distress HEAD: No signs of trauma, normocephalic, atraumatic EYES: L eye with supero-lateral deviation (pt baseline). PERRLA, EOMI, sclera anicteric, conjunctiva clear ENT: Auricles normal inspection, hearing grossly normal, nares patent, oropharynx clear withoutexudates. Moist mucosa NECK: Normal ROM, supple, no lymphadenopathy, JVD, or masses LUNGS: No distress, speaks full sentences, clear to auscultation bilaterally HEART: Regular rate and rhythm, normal S1 and S2, no murmurs, rubs or gallops, peripheral pulses normal and equal bilaterally. ABDOMEN: Soft, nontender, normoactive bowel sounds. No guarding, no rebound. No masses EXTREMITIES : BL bright red maculo-papular rash on flexor/extensor surface of forearms. Normal inspection, Normal range of motion, no edema. No clubbing or cyanosis. NEUROLOGICAL: Cranial nerves II through XII appears except R facial droop and speech difficulty, with L eye supero-lateral deviation. strenght symetric 5-/5 b /l in LE, 5/5 in UE Sensation intact BL in all dermatomes. 5-/5 patch worker strength. No pronator drift. Gait deferred CBCD WBC 4.9 K/mm3 (4.0-10.0) 09/04/17 05:48 RBC 4.16 M/mm3 (4.00-5.60) 09/04/17 05:48 Hgb 13.3 GM/dL (11.7-16.9) 09/04/17 05:48 Hct 37.8 % (35.4-49) 09/04/17 05:48 MCV 91.0 fl (80-96) 09/04/17 05:48 MCHC 35.3 g/dl (32.0-35.9) 09/04/17 05:48 RDW 15.5 % (11.9-15.9) 09/04/17 05:48 Plt Count 260 K/MM3 (134-434) 09/04/17 05:48 MPV 8.4 fl (7.5-11.1) 09/04/17 05:48 CMP Sodium 141 mmol/L (136-145) 09/04/17 05:48 Potassium 3.9 mmol/L (3.5-5.1) 09/04/17 05:48 Chloride 104 mmol/L (98-107) 09/04/17 05:48 Carbon Dioxide 29 mmol/L (21-32) 09/04/17 05:48 Anion Gap 8 (8-16) 09/04/17 05:48 BUN 21 mg/dL (7-18) H 09/04/17 05:48 Creatinine 0.9 mg/dL (0.7-1.3) 09/04/17 05:48 Creat Clearance w eGFR > 60 (>60) 09/03/17 16:34 Random Glucose 142 mg/dL (74-106) H D 09/04/17 05:48 Calcium 8.5 mg/dL (8.5-10.1) 09/04/17 05:48 Total Bilirubin 0.5 mg/dL (0.2-1.0) D 09/03/17 16:34 AST 19 U/L (15-37) D 09/03/17 16:34 ALT 24 U/L (12-78) 09/03/17 16:34 Alkaline Phosphatase 84 U/L (45-117) D 09/03/17 16:34 Total Protein 6.9 g/dl (6.4-8.2) D 09/03/17 16:34 Albumin 3.9 g/dl (3.4-5.0) D 09/03/17 16:34 CARDIAC ENZYMES Creatine Kinase 175 IU/L (39-308) 09/03/17 16:34 Troponin I < 0.02 ng/ml (0.00-0.05) 09/03/17 16:34 CT head reviewed MRI brain reviewed Echo reviewed Plan: 87 year old male, with a significant past medical history of HTN, bullous pemphigoid, prostate Ca, who presented to the emergency department after family witnessed slurred speech, facial droop/drooling and gait instability starting morning of admission. Per family, these symptoms occurred intermittently with brief periods of return to baseline and therefore was not immediately brought to the hospital. Eventually symptoms recurred and therefore brought to hospital for evaluation. CT head completed and showed age indeterminate L basal ganglia hypodensity. In the past reportedly with Afib s/p reported ablation, not on AC at this time. I was contacted by ER and spoke with Dr. Andino, cardiology. The patient was out of TPA window. Also minimal deficit and not candidate for thrombectomy. Overnight, permissive HTN allowed. Patient given ASA 325mg dose. Hand dexterity difficulty with speech disturbance. -MRI brain confirmed infarct -Carotid doppler without HD signficant stenosis -Echo without wall motion abnormalities -ASA 81mg daily recommended -Statin, LDL 126, goal <70 in CVA -Speech/swallow note appreciated, modified barium swallow being planned -Telemetry monitoring ongoing -Pt/Speech therapy -BP range <160/90 for now -Follow up cardiology recs -Discussed with daughter, preference for [facility] -DVT ppx
[2017-09-05] MEDS ORDERED: METHOTREXATE 2.5 MG TABLET PO SCH (10:00)
[2017-09-05 10:35] VITALS: BP 162/70; PULSE 70; TEMP 98.2
--- NOTE | 2017-09-05 10:43 | PN ---
Progress Note (short form) - Note Progress Note: cc: cva S: still with abnormal motor function in UE. no cp, palps, dizziness, sob. on gentle IVF. s/p echo, carotid u/s and mri, results reviewed. remote ex-cigs Current Medications Acetaminophen (Tylenol -) 650 mg PO Q6H PRN PRN Reason: PAIN LEVEL 1-5 Amlodipine Besylate (Norvasc -) 2.5 mg PO DAILY [facility] Last Admin: 09/05/17 09:32 Dose: 2.5 mg Aspirin (Ecotrin -) 81 mg PO DAILY [facility] Last Admin: 09/05/17 09:31 Dose: 81 mg Atorvastatin Calcium (Lipitor -) 40 mg PO HS [facility] Last Admin: 09/04/17 21:31 Dose: 40 mg Docusate Sodium (Colace -) 100 mg PO BID [facility] Last Admin: 09/05/17 09:31 Dose: 100 mg Hydrochlorothiazide (Hctz -) 12.5 mg PO DAILY [facility] Last Admin: 09/05/17 09:31 Dose: 12.5 mg Sodium Chloride (Normal Saline -) 1,000 mls @ 42 mls/hr IV ASDIR [facility] Last Admin: 09/04/17 19:15 Dose: 42 mls/hr Labetalol HCl (Normodyne -) 200 mg PO BID [facility] Last Admin: 09/05/17 09:33 Dose: 200 mg Methotrexate (Mexate -) 20 mg PO Tu@1000 [facility] Last Admin: 09/05/17 09:32 Dose: 20 mg Methylprednisolone Sodium Succinate (Solu-Medrol -) 40 mg IVPUSH BID [facility] Last Admin: 09/05/17 09:32 Dose: 40 mg Non-Formulary Medication (Halobetasol Prop 0.05% Tp Crm) 1 applic TP DAILY [facility] Pantoprazole Sodium (Protonix -) 40 mg PO DAILY [facility] Last Admin: 09/05/17 09:33 Dose: 40 mg Vital Signs - 24 hr 09/04/17 09/04/17 09/04/17 14:33 18:00 20:45 Temperature 98.2 F 97.8 F 97.5 F L Pulse Rate 82 82 78 Respiratory 18 18 18 Rate Blood Pressure 183/72 144/78 148/76 O2 Sat by Pulse Oximetry (%) 09/04/17 09/05/17 09/05/17 21:00 02:00 06:00 Temperature 98 F 98.3 F Pulse Rate 80 77 Respiratory 20 20 Rate Blood Pressure 151/74 167/71 O2 Sat by Pulse 95 Oximetry (%) 09/05/17 10:00 Temperature 98.2 F Pulse Rate 70 Respiratory 18 Rate Blood Pressure 162/70 O2 Sat by Pulse Oximetry (%) Intake & Output 09/03/17 09/04/17 09/05/17 09/06/17 07:59 07:59 07:59 07:59 Intake Total 420 814 240 Output Total 1350 Balance -930 814 240 Weight 175 lb 9.6 oz 175 lb 9.6 oz Constitutional: Yes: Well Nourished, No Distress Eyes: No: Sclera Icterus HENT: No: Nasal Congestion Neck: No: Decreased ROM Respiratory: Yes: CTA Bilaterally. No: Accessory Muscle Use, Rales, Wheezes Gastrointestinal: Yes: Normal Bowel Sounds. No: Distention, Hepatomegaly, Palpable Mass, Tenderness Cardiovascular: Yes: Regular Rate and Rhythm JVD: No Carotid Bruit: No PMI: Non-Displaced Heart Sounds: Yes: S1, S2. No: Gallop Murmur: 2/6 early peaking VALERY at LUSB. Musculoskeletal: Yes: Other (No kyphosis) Extremities: No: Cold, Cyanosis Edema: No Peripheral Pulses: 2+ Left Carotid, 2+ Right Carotid, 2+ Left Doralis Pedis, 2+ Right Dorsalis Pedis Integumentary: No: Jaundice Neurological: Yes: Alert, Oriented (x3) Psychiatric: No: Agitated - Other Data Labs, Other Data: CBC, BMP 09/05/17 06:35 09/05/17 06:35 Laboratory Tests 09/03/17 09/05/17 16:34 06:35 Magnesium 2.3 Total LDL Cholesterol 126 H TSH 0.61 tele: NSR with pvc's EKG: NSR, PVC. LAFB. BYRON. incomplete LBBB--QRS slightly wider vs prior 07/28/16 CXR: clear lungs/pleura echo 08/2017: nl lv/rv size/fn. nl la size. 1+ mac. CT head: ischemic infarct (indeterminate age) in L caudate nucleus/cabrera radiata/corpus striatum carotid u/s: small-mod plaques bilaterally with no evidence of stenosis. brain mri: nonhemorrhagic acute left striatocapsular infarct. chronic microangiopathic ischemic changes. Assessment/Plan 87 yo afib/flutter--s/p ablation ([facility]), off AC s/p ablation, htn with additional white coat component, hl, prostate CA s/p prostatectomy, bullous pemphigoid (MTX and rituximab) who p/w acute onset of slurred speech, L sided facial droop/drooling and gait instability --> confirmed infarct on mri. acute ischemic CVA: - no stenosis on carotid u/s. echo with mac, otherwise wnl -LDL 120s, start atorva 40 (elderly pt). admits to having self-d/c'd statin a while ago -h/o HTN which has been poorly controlled--? etiology of current stroke. bp control as disc'd below -s/p remote fib/flutter ablation, off AC per EP ([facility] Lopez [facility]). continue tele monitoring here--would rec outpt loop recorder for PAF/flutter if tele uneventful -no evidence of recurrence of fib/flutter on tele here. continue aspirin 81 for secondary prevention. h/o aflutter, s/p remote ablation in 1998 - stopped AC about 3 mo after ablation. never resumed AC b/c no recurrence of palps. No EP f/u since ablation. -in sinus here, no evidence of recurrence -outpt monitoring as above abnormal EKG: -incomplete LBBB new vs prior -no acute cardiac ischemia sx's. -trop neg x 2 -echo with nl systolic fn. HTN: -on labetalol and HCTZ at home, both continued here -tolerated FERNY-I and amlodipine in past per dtr (stopped both and changed to labetalol and hctz to observe for improvement in pemphigoid--there was no improvement seen.) -home BPs chronically uncontrolled, worse of late--will need intensive bp mgmt going forward. however, in setting of acute CVA we will avoid overzealous lowering which may worsen neuro status. goal bp <160/[address] ramos, -resumed home regimen of labetolol and hctz and added low dose amlodipine. -can uptitrate norvasc and/or resume his prior lisinopril in future if bp's remain suboptimal HPL: -as above stable from CV perspective. Will need further adjustment/uptitration of bp meds as outpatient. Will need cardiology f/u to arrange financial reporting advisor as outpatient.
--- NOTE | 2017-09-05 11:19 | PN ---
Progress Note, TIME STUDY TECHNOLOGIST - Note Progress Note: Selected Entries 09/04/17 09/04/17 09/04/17 01:59 05:00 08:27 Breakfast Temperature 98.3 F 98.4 F 98.0 F 09/04/17 09/04/17 09/04/17 14:33 18:00 20:45 Breakfast Temperature 98.2 F 97.8 F 97.5 F L 09/05/17 09/05/17 09/05/17 02:00 06:00 10:00 Breakfast Temperature 98 F 98.3 F 98.2 F 09/05/17 10:19 Breakfast 75% Temperature Laboratory Tests 09/04/17 09/05/17 05:48 06:35 WBC 4.9 8.8 D Right facial. Occasional cough response on salive, sips of water when not focusing. Food on right side of lips without awareness sec decreased sensation. MBS (-) aspiration. Difficulty feeding himself, spilling food with impaired UE/ hand strength/ coordination. Left hand dominant but eats with r hand. Sam-motor exrecises given. Swallowing exercises: Effortful/Marcia. Monitor for congestion/fever. MaY NEED THICK LIQUIDS IF COUGH CONTINUES. Excellent rehab candidate.. Accepted by [facility]
--- NOTE | 2017-09-05 13:01 | DS ---
Physical Examination Vital Signs: Vital Signs Temperature 98.2 F 09/05/17 10:00 Pulse Rate 70 09/05/17 10:00 Respiratory Rate 18 09/05/17 10:00 Blood Pressure 162/70 09/05/17 10:00 O2 Sat by Pulse Oximetry (%) 94 L 09/05/17 09:00 Findings/Remarks: Patient is an 87 year old male, with a significant past medical history of HTN, bullous pemphigoid, prostate Ca, who presents to the emergency department after family witnessed acute onset of slurred speech, L sided facial droop/drooling and gait instability starting this AM around 8AM. Pt was in his normal state of health yesterday evening, but noted some mild confusion/disorientation in the late evening, however thought nothing of it. Starting around 8AM, Pt family noted L sided facial droop with drooling and acute onset of slurred speech, in addition to inability to ambulate due to lower extremity weakness, L>R. Per family, these symptoms occurred intermittently with brief periods of return to baseline. Pt with hx of prior stroke, NE, CVD, or chronic neurologic conditions. Pt currently not on AC. Pt with good exercise tolerance, uses the eliptical for an hour a day. No recent travel or sick contacts. Does not follow with neurologist. In addition, patient endorses L leg weakness/numbness, gait instability. Patient denies palpitations, chest pain, shortness of breath, cough, headache or dizziness. Denies fever, chills, nausea, vomiting, diarrhea and constipation. Denies dysuria, frequency, urgency and hematuria. # CVA -- MRI confirmed ASA / Statins --started on lipitor 40 ( LDL>100) ( had been on "it" previously) Carotids / echo reviewed telemetry -- sinus swallow evaluation anf physical therapy evaluation and treatment @ [facility] discuss with family #HTN labetolol and HCTZ -home meds continued will need closer monitoring and improved control currently acceptable bp - permissive HTN - per neurology #Bullous pemphigoid continue MTX at 20 mg/ monday started IV solumedrol 40 BID / 40mg/day today / change to PO - and continue to taper ( plans are to D/C prednisone ) scheduled for rituxan September 29, 2017 should not be a pe[place] Constitutional: Yes: Well Nourished, No Distress, Calm, Other (facial asymmetry / right facial droop /) Eyes: Yes: Conjunctiva Clear HENT: Yes: WNL. No: Drooling Neck: Yes: Supple, Trachea Midline Cardiovascular: Yes: Regular Rate and Rhythm Respiratory: Yes: Regular, CTA Bilaterally Gastrointestinal: Yes: Normal Bowel Sounds ...Rectal Exam: Yes: Deferred Renal/: Yes: WNL Breast(s): Yes: WNL Musculoskeletal: Yes: Muscle Weakness, Other (dificulty with fine motor skills) Edema: No Peripheral Pulses WNL: Yes Integumentary: Yes: WNL Neurological: Yes: Alert, Oriented, Unsteady Gait, Weakness. No: Confusion, Tingling, Tremors Psychiatric: Yes: Alert, Oriented Labs: CBC, BMP 09/05/17 06:35 09/05/17 06:35 Discharge Summary Reason For Visit: NUMBNESS/ SLURR SPEECH Current Active Problems CVA (cerebral vascular accident) (Acute) TIA (transient ischemic attack) (Acute) Condition: Improved - Instructions Referrals: Helga Mckeon MD [Staff Physician] - ON STAFF,NOT [Primary Care Provider] - Disposition: HALFWAY FACILITY - Home Medications Comprehensive Discharge Medication List: Ambulatory Orders Cholecalciferol (Vitamin D3) [Vitamin D3] 50,000 unit PO WEEKLY 07/28/16 Halobetasol Prop 0.05% Tp Crm [Ultravate (Nf) -] 1 applic TP DAILY 07/28/16 Labetalol HCl [Normodyne -] 200 mg PO BID 07/28/16 predniSONE [Deltasone -] 5 mg PO DAILY 07/28/16 Hydrochlorothiazide [Hctz -] 12.5 mg PO DAILY 09/03/17 Methotrexate Sodium [Methotrexate] 20 mg PO WEEKLY 09/03/17 ( monday ) asa 81 mg daily lipitor 40 mg daily
== END 2017-09-05 15:47 | DRG 65 ==
LOC: JER 16:12 → J4W 18:10 → UNDODISIN 09-04 14:17
PROVIDERS: ADMIT Family Medicine; ATTEND Family Medicine
DX: I63.9 Cerebral infarction, unspecified (principal); L12.0 Bullous pemphigoid; I69.354 Hemiplegia and hemiparesis following cerebral infarction affecting left non-dominant side; I10 Essential (primary) hypertension; R29.701 NIHSS score 1; I69.392 Facial weakness following cerebral infarction; I44.7 Left bundle-branch block, unspecified
CPT/HCPCS: 36415; 70450-TC; 70551-TC; 71045-TC-FY; 74230-TC-FY; 80048; 80053; 81003; 82465; 82550; 82553; 83036; 83718; 83721; 83735; 84443; 84478; 84484; 85025; 85610; 86850; 86900; 86901; 92611-GN; 93005; 93010; 93306-TC; 93880-TC; 97116-GP; 97161-GP; 99285-25; J7030; J8610

== ENCOUNTER 2018-09-01 09:38 | Emergency (ER) | payer OTHER, BC ==
--- NOTE | 2018-09-01 09:40 | PDOC ---
History of Present Illness - General Chief Complaint: Injury Stated Complaint: LFA SKIN TEAR Time Seen by Provider: 09/01/18 09:39 History Source: Patient Exam Limitations: No Limitations - History of Present Illness Initial Comments: 09/01/18 09:41 88 year old male, with a significant past medical history of HTN, bullous pemphigoid, prostate Ca, prior CVA with R sided deficit, paroxysmal afib w/ cardiac ablation, implantable heart monitor who presents with L forearm skin tear 2 days ago after fall without head trauma or neck trauma that began rebleeding today after a shower. The patient is on ASA. The patent denies any fevers, rashes, but thinks he might have some swelling in the L forearm but is not sure. He has no other complaints. 09/01/18 10:42 Past History - Past Medical History Allergies/Adverse Reactions: Allergies Allergy/AdvReac Type Severity Reaction Status Date / Time alprazolam [From Xanax] Allergy Verified 09/01/18 09:38 codeine Allergy Verified 09/01/18 09:38 Home Medications: Ambulatory Orders Cholecalciferol (Vitamin D3) [Vitamin D3] 50,000 unit PO WEEKLY 07/28/16 Labetalol HCl [Normodyne -] 200 mg PO BID 07/28/16 Hydrochlorothiazide [Hctz -] 12.5 mg PO DAILY 09/03/17 Aspirin Coated [Ecotrin -] 81 mg PO DAILY tablet.ec 09/05/17 Atorvastatin Ca [Lipitor] 40 mg PO HS tablet 09/05/17 Methotrexate [Mexate -] 20 mg PO Tu@1000 tablet 09/05/17 Amlodipine Besylate 5 mg PO DAILY 09/01/18 Cancer: Yes (prostate) Cardiac Disorders: Yes (afib) COPD: No HTN: Yes Hypercholesterolemia: Yes - Surgical History Appendectomy: Yes Cardiac Surgery: Yes (3YRS AGO) GI Surgery: Yes (inguinal hernia repair) - Suicide/Smoking/Psychosocial Hx Smoking History: Former smoker Have you smoked in the past 12 months: No Hx Alcohol Use: No Drug/Substance Use Hx: No Substance Use Type: None Hx Substance Use Treatment: No Review of Systems - Review of Systems Able to Perform ROS?: Yes Comments:: 09/01/18 10:35 GENERAL/CONSTITUTIONAL: No fever or chills. No weakness. HEAD, EYES, EARS, NOSE AND THROAT: No change in vision. No ear pain or discharge. No sore throat. CARDIOVASCULAR: No chest pain or shortness of breath RESPIRATORY: No cough, wheezing, or hemoptysis. GASTROINTESTINAL: No nausea, vomiting, diarrhea or constipation. GENITOURINARY: No dysuria, frequency, or change in urination. MUSCULOSKELETAL: No joint or muscle swelling or pain. No neck or back pain. SKIN: + brusing and skin tear NEUROLOGIC: No headache, vertigo, loss of consciousness, or change in strength/ sensation. ENDOCRINE: No increased thirst. No abnormal weight change HEMATOLOGIC/LYMPHATIC: No anemia, easy bleeding, or history of blood clots. ALLERGIC/IMMUNOLOGIC: No hives or skin allergy. Is the patient limited [place] proficient: No *Physical Exam - Physical Exam Comments: 09/01/18 10:37 GENERAL: Awake, alert, and fully oriented, in no acute distress HEAD: No signs of trauma, normocephalic, atraumatic EYES: dysconjugate gaze sclera anicteric, conjunctiva clear ENT: oropharynx clear without exudates. Moist mucosa NECK: Normal ROM, supple, LUNGS: No distress, speaks full sentences, clear to auscultation bilaterally HEART: Regular rate and rhythm, normal S1 and S2, no murmurs, rubs or gallops, peripheral pulses normal and equal bilaterally. ABDOMEN: Soft, nontender, normoactive bowel sounds. No guarding, no rebound. No masses EXTREMITIES : Normal inspection, limited R armd ROM no edema. No clubbing or cyanosis. NEUROLOGICAL: Cranial nerves II through XII grossly intact. Normal speech, normal gait, no focal sensorimotor deficits SKIN: + L elbow, forearcm approx 4cm skin abrasion with surroudning ecchymosis without ceelulitits or reythma, swelling Medical Decision Making - Medical Decision Making 09/01/18 10:39 88 year old male, with a significant past medical history of HTN, bullous pemphigoid, prostate Ca, prior CVA with R sided deficit, paroxysmal afib w/ cardiac ablation, implantable heart monitor who presents with L forearm skin tear 2 days ago after fall without head trauma or neck trauma that began rebleeding today after a shower. ED Course patient with skin abrasion not on AC no hx of DM hitsory of bollous pemphigoid controlled will debride and redress wound no complications, follow up instructions given, 09/01/18 10:42 *DC/Admit/Observation/Transfer Diagnosis at time of Disposition: Skin abrasion - Discharge Dispostion Disposition: HOME Condition at time of disposition: Stable Decision to Admit order: No - Referrals Referrals: Rico Agosto MD [Primary Care Provider] - - Patient Instructions Printed Discharge Instructions: DI for Abrasion Additional Instructions: You were seen in the ED for complaints of L forearm abrasion In the ED you were evaluated and your wound was cleaned and redressed. Keep your dressing clean and dry for 24 hours and redress and clean as needed but no more than 3-4 days between dressings. You are advised to follow up with your Primary Care Physician within 1 week. Return to the ED immediately if you experience worsening skin swelling, bruising or tearing. If you notice a rash on the skin or experience swelling. - Post Discharge Activity
--- NOTE | 2018-09-01 09:46 | PDOC ---
Attending Attestation - Resident Resident Name: Tati Randhawa - ED Attending Attestation I have performed the following: I have examined & evaluated the patient, The case was reviewed & discussed with the resident, I agree w/resident's findings & plan, Exceptions are as noted - HPI HPI: 09/01/18 10:58 Patient scraped his left elbow several days ago, sustaining a skin tear. No pain or sign of infection, but some serosanguineous drainage. Requests wound care and dressing change. There were no other injuries. The patient lives with his and she reports that he has no other physical or mental abnormalities at this time. There were no other serious injuries. Past medical history is significant for bullous pemphigoid and CVA with mild right hemiparesis. He is on one baby aspirin but no other anticoagulants. Bullous pemphigoid is in remission with no outbreaks in over 2 years. He still receives infrequent monoclonal antibody infusions but has not been on steroids for over one year. 09/01/18 11:00 - Physicial Exam PE: 09/01/18 11:01 Physical exam reveals a mild right hemiparesis that is unchanged. Also there is a palsy of the right medial rectus and a mild right lower facial which are unchanged as well. Vital signs are normal There is a skin tear over the lateral aspect of the distal left upper arm, just proximal to the elbow. It is approximately 4 cm in diameter. No laceration is present. There is healthy tissue below the devitalized epidermis. There is no surrounding erythema, induration, or warmth. There is no swelling or deformity of the distal upper arm or elbow, the elbow demonstrating full range of motion without limitation or pain. No distal sensory deficits. Pulses full. - Medical Decision Making 09/01/18 11:04 Impression: Minor skin tear, healing well, no sign of infection, no sign of fracture or other bony injury Plan: The wound was thoroughly scrubbed with saline, with elevation of the devitalized epidermis and minimal debridement. The wound was dried and a Tegaderm dressing was applied, covered with 4 x 4's, and wrapped with Brody, a careful not to take directly to the patient's skin. Wound care was reviewed with his , who will continue to change the dressings, and if she notices any sign of infection she will return to the ER or consult primary physician Dr. Agosto Fully ambulatory upon discharge with his , in no pain or other distress, to follow-up as directed
[2018-09-01 09:57] VITALS: BP 141/63; PULSE 62; TEMP 97.6; BMI 27.7
== END 2018-09-01 11:00 | disposition home or self-care (01) ==
LOC: FER 09:38
DX: Z48.00 Encounter for change or removal of nonsurgical wound dressing (principal); I10 Essential (primary) hypertension; L12.0 Bullous pemphigoid; Z86.73 Personal history of transient ischemic attack (TIA), and cerebral infarction without residual deficits; Z85.46 Personal history of malignant neoplasm of prostate
CPT/HCPCS: 99283-25